=== PATIENT | male | born 1960 | race Caucasian/White ===

== ENCOUNTER 2016-07-09 23:10 | Inpatient (IN) ==
[2016-07-09] MEDS ORDERED: LASIX IV ONE (23:45)
--- NOTE | 2016-07-09 23:51 | PROVIDER DOCUMENTATION ---
HPI-Respiratory General <Lindsey Brice - Last Filed: 07/10/16 00:29> - General Source: patient <Sigrid Preston - Last Filed: 07/10/16 00:52> - General Chief Complaint: Shortness of Breath Stated Complaint: SOB Time Seen by Provider: 07/09/16 23:28 Allergies/Adverse Reactions: Patient Allergies Allergy/AdvReac Type Severity Reaction Status Date / Time No Known Allergies Allergy Verified 07/09/16 23:51 Home Medications: Home Medication List Medication Instructions Recorded Confirmed Last Taken Type Aspirin 81 mg PO QAM 07/08/12 07/09/16 07/09/16 08:00 History Lisinopril [Zestril] 20 mg PO QAM 07/08/12 07/09/16 07/09/16 08:00 History ATORVAstatin [Lipitor] 80 mg PO QAM 11/03/15 07/09/16 07/09/16 21:00 History Edoxaban Tosylate [Savaysa] 60 mg PO QAM 11/03/15 07/09/16 07/09/16 08:00 History Albuterol Sulfate [Proair Hfa] 8.5 gm IH DAILY 03/24/16 07/09/16 07/09/16 08:00 History Clopidogrel Bisulfate [Clopidogrel] 75 mg PO DAILY 03/24/16 07/09/16 07/09/16 08 :00 History Furosemide [Lasix] 40 mg PO DAILY PRN 03/24/16 07/09/16 07/09/16 20:00 History Levocetirizine Dihydrochloride 5 mg PO DAILY 03/24/16 07/09/16 07/09/16 08:00 History [Xyzal] Potassium Chloride [Klor-Con M20] 20 meq PO DAILY PRN 03/24/16 07/09/16 21:00 History Metoprolol Succinate [Toprol Xl] 25 mg PO DAILY 07/09/16 07/09/16 07/09/16 08: 00 History - History of Present Illness-Resp Nature of Presenting Problem: 55 y/o WM c hx of CHF, PCI x 3, 3 vessel CAGB and COPD c/o sob x 2 days. Denies cough, or chest pain. Has increased from a 2 pillow orthopnea to a four pillow orthopnea. Has Lasix 40 mg daily PRN. Wears CPAP at night and oxygen at night when needed. Patient states when he dois cough, it is frothy and thinks there is blood in it. States he feels like he "ate Claudia dinner and Thanksgiving dinner at the same time" alluding to that he cannot take a deep breath in. Has swelling in lower extremities bilaterally (Sigrid Preston) Review of Systems - Adult - REVIEW OF SYSTEMS - ADULT Constitutional: reports: see HPI, fatique. denies: chills, fever Eyes: reports: no symptoms reported. denies: decreased vision, blurred vision, double vision, eye pain Ears, Nose, Mouth & Throat: reports: no symptoms reported. denies: ear pain, nose pain, throat pain Cardiovascular: reports: no symptoms reported. denies: chest pain, irregular heart rate, palpitations Respiratory: reports: see HPI, shortness of breath. denies: cough, wheezing Gastrointestinal: reports: no symptoms reported. denies: abdominal pain, diarrhea, nausea, vomiting Genitourinary: reports: no symptoms reported. denies: dysuria, discharge, frequency Musculoskeletal: reports: no symptoms reported. denies: bone pain, back pain, muscle aches Integumentary: reports: no symptoms reported. denies: rash Neurological: reports: no symptoms reported. denies: headache/migraines Psychiatric: reports: no symptoms reported Endocrine: reports: no symptoms reported Hematologic/Lymphatic: reports: no symptoms reported Allergic/Immunologic: reports: no symptoms reported All Other Systems: Reviewed and Negative <Sigrid Preston - Last Filed: 07/10/16 00:52> Past History - Adult - PAST MEDICAL HISTORY-ADULT Review of Records: reports: Old Records Reviewed, Nursing Assessment Review, Medications Reviewed Major Childhood Illnesses: reports: denies history Cardiovascular: reports: CAD, CHF, HTN, hyperlipidemia, pacemaker Respiratory: reports: asthma, COPD Gastrointestinal: reports: denies history Genitourinary: reports: denies history Musculoskeletal: reports: denies history Neurological: reports: denies history Endocrine/Immune: reports: denies history Other Conditions: reports: denies history - PRIOR SURGERIES/PROCEDURES Surgical/Procedure History: reports: CABG, cardiac stent, pacemaker - IMMUNIZATION STATUS Childhood Immunizations: See Nurse Assessment Flu Vaccine: See Nurse Assessment - FAMILY HISTORY Family History: reviewed, not pertinent - SOCIAL HISTORY Smoking: denies Substance Use: none/never Alcohol Use Frequency: never <Sigrid Preston - Last Filed: 07/10/16 00:52> Physical Exam-General - PHYSICAL EXAM-ADULT Initial Vital Signs Reviewed: Yes - CONSTITUTIONAL General Appearance: appears well, alert, no apparent distress, obese - EYES Eyes: PERRL/EOMI, pink conjunctivae - HEAD, EARS, NOSE, MOUTH & THROAT HENMT: normocephalic/atraumatic, moist mucous membranes, normal ENT inspection - NECK Neck: non-tender, full range of motion, supple, normal inspection - RESPIRATORY Respiratory: chest non-tender, no pleuratic chest pain, no respiratory distress , no accessory muscle use, crackles. negative: respiratory distress, decreased breath sounds, rales, rhonchi, stridor, wheezing - CARDIOVASCULAR Cardiovascular: normal peripheral pulses, regular rate, rhythm, no gallop, no murmur - MUSCULOSKELETAL Extremity: normal range of motion, other (3+ pitting edema up to the knees) Peripheral Pulses: radial (R): 2+, radial (L): 2+, dorsalis-pedis (R): 2+ DTR: bicep (R): 4+, bicep (L): 4+, tricep (R): 4+, tricep (L): 4+, knee (R): 4+ , knee (L): 4+, ankle (R): 4+, ankle (L): 4+ - SKIN Integumentary: normal color, normal turgor, warm/dry - NEUROLOGIC Neurologic: grossly normal, no motor/sensory deficits - PSYCHIATRIC Psych/Mental Status: normal mood/affect, normal thought content, normal thought process, oriented x 3 <Sigrid Preston - Last Filed: 07/10/16 00:52> Progress - EKG 1 Time of EKG reading by physician:: 23:20 EKG Read and Signed by:: Ethan Sun EKG Interpretation (*Must complete 3 of following elements*): Abnormal Rate: 101 Rhythm: sinus tachycardia with occasional PVCs ST Wave: non-specific ST changes <Lindsey Brice - Last Filed: 07/10/16 00:29> - XRAY 1 XRAY: Bilateral XRAY Study: Chest Impression: Abnormal (pulmonary edema bilaterally, ER prelim) - CONSULTS/PCP/HOSPITALIST Notification #1 *Consult/PCP/Hospitalist*: Dr. Jaimes, hospitalist Time Discussed: 00:51 Reason/Comments: CHF exacerbation, pulmonary edema Consult Disposition: Admit (get efibrillater interrogated) <Sigrid Preston Chance - Last Filed: 07/10/16 00:52> - PLAN OF CARE/RESULTS Progress/Plan/Lab Results: Vital Signs Temp Pulse Resp BP Pulse Ox 07/09/16 23:14 97.7 F 102 H 22 156/77 95 No Known Allergies Allergy (Verified 07/09/16 23:51) Aspirin 81 mg PO QAM 07/08/12 Lisinopril [Zestril] 20 mg PO QAM 07/08/12 ATORVAstatin [Lipitor] 80 mg PO QAM 11/03/15 Edoxaban Tosylate [Savaysa] 60 mg PO QAM 11/03/15 Albuterol Sulfate [Proair Hfa] 8.5 gm IH DAILY 03/24/16 Clopidogrel Bisulfate [Clopidogrel] 75 mg PO DAILY 03/24/16 Furosemide [Lasix] 40 mg PO DAILY PRN 03/24/16 Levocetirizine Dihydrochloride [Xyzal] 5 mg PO DAILY 03/24/16 Potassium Chloride [Klor-Con M20] 20 meq PO DAILY PRN 03/24/16 Metoprolol Succinate [Toprol Xl] 25 mg PO DAILY 07/09/16 Laboratory 07/09/16 07/09/16 07/09/16 23:55 23:55 23:55 WBC RBC Hgb Hct MCV MCH MCHC RDW Std Deviation Plt Count MPV Immature Gran % (Auto) Neut % (Auto) Lymph % (Auto) Elk % (Auto) Eos % (Auto) Baso % (Auto) Immature Gran # (Auto) Neut # (Auto) Lymph # (Auto) Elk # (Auto) Eos # (Auto) Baso # (Auto) Sodium 140 Potassium 4.4 Chloride 98 Carbon Dioxide 25 Anion Gap 17 BUN 25 H Creatinine 1.0 Estimated GFR/1.73 m2 > 60 BUN/Creatinine Ratio 25 Glucose 107 H Calculated Osmolality 284 Calcium 9.0 Total Bilirubin 0.79 AST 13 ALT 13 Alkaline Phosphatase 78 Creatine Kinase 74 Troponin T < 0.010 [id number] Pept 1663 H Total Protein 7.2 Albumin 4.1 Globulin 3.1 Albumin/Globulin Ratio 1.3 07/09/16 23:55 WBC 6.29 RBC 3.72 L Hgb 12.1 L Hct 38.0 L MCV 102.2 H MCH 32.5 H MCHC 31.8 L RDW Std Deviation 14.5 Plt Count 160 MPV 10.6 H Immature Gran % (Auto) 0.0 Neut % (Auto) 66.2 Lymph % (Auto) 20.2 L Elk % (Auto) 12.4 H Eos % (Auto) 0.6 Baso % (Auto) 0.6 Immature Gran # (Auto) 0.00 Neut # (Auto) 4.16 Lymph # (Auto) 1.27 Elk # (Auto) 0.78 H Eos # (Auto) 0.04 Baso # (Auto) 0.04 Sodium Potassium Chloride Carbon Dioxide Anion Gap BUN Creatinine Estimated GFR/1.73 m2 BUN/Creatinine Ratio Glucose Calculated Osmolality Calcium Total Bilirubin AST ALT Alkaline Phosphatase Creatine Kinase Troponin T [id number] Pept Total Protein Albumin Globulin Albumin/Globulin Ratio Orders Category Date Time Status Saline Loc NOW Care 07/09/16 23:37 Active CHEST-PORTABLE [RAD] Stat Exams 07/09/16 23:53 Taken CBC WITH ELECTRONIC DIFF [HEME] Stat Lab 07/09/16 23:55 Completed CK PROFILE [SP CHEM] Stat Lab 07/09/16 23:55 Completed COMPREHENSIVE METABOLIC PANEL [CHEM] Stat Lab 07/09/16 23:55 Completed PRO B-NATRIURETIC PEPTIDE Stat Lab 07/09/16 23:55 Completed TROPONIN T Stat Lab 07/09/16 23:55 Completed Furosemide [Lasix] Med 07/09/16 23:45 Discontinued 40 mg IV NOW ONE EKG [EKG] Stat Ther 07/09/16 23:16 Ordered (Sigrid Preston) Departure <Lindsey Brice - Last Filed: 07/10/16 00:29> - Departure Time of Disposition Order: 00:45 Certified Medical Emergency: Emergent <Sigrid Preston - Last Filed: 07/10/16 00:52> - Departure DIAGNOSIS: Heart failure Qualifiers: Heart failure type: combined Heart failure chronicity: acute on chronic Qualified Code(s): I50.43 - Acute on chronic combined systolic (congestive) and diastolic (congestive) heart failure Dyspnea Qualifiers: Dyspnea type: dyspnea on exertion Qualified Code(s): R06.09 - Other forms of dyspnea Disposition: ADMITTED INPATIENT 09 Condition: Stable Referrals: Alma Michaels [Primary Care Provider] - Attestation - Physician/ LUIZA Attestation Patient care was provided by Advanced Practice Provider:: Yes Advanced Practice Provider:: Sigrid Preston Advanced Practice Provider documentation review:: The Mid-level provider documentation, treatment plan and medical decision making was reviewed by the physician who agrees with all treatment and medical decision making by the MLP. <Sigrid Preston - Last Filed: 07/10/16 00:52> Physician Attestation
[2016-07-10 00:05] LABS: MANUAL DIFF NEEDED? NO
[2016-07-10 00:08] LABS: BASO% 0.6 % (0.0-0.8); EOS# 0.04 X1000 (0.0-0.7); EOS% 0.6 % (0.0-10.0); HEMOGLOBIN 12.1 g/dL (14.0-18.0); LYMPH# 1.27 X1000 (1.2-3.4); LYMPH% 20.2 % (20.5-51.1); MCH 32.5 PG (27-31); MCHC 31.8 g/dL (33-37); MCV 102.2 FL (81-99); MONO# 0.78 X1000 (0.11-0.59); MONO% 12.4 % (1.7-9.3); MPV 10.6 FL (7.4-10.4); NEUT% 66.2 % (42.2-75.2); PLT 160 X1000 (130-400); RBC 3.72 XMIL (4.7-6.1)
[2016-07-10 00:44] LABS: AGAP 17; ALBUMIN 4.1 g/dL (3.5-5.0); ALKALINE PHOSPHATASE 78 U/L (32-122); BUN 25 mg/dL (8-22); CHLORIDE 98 mmol/L (98-107); CK PROFILE 74 U/L (24-204); COSMO 284; GOT 13 U/L (10-34); GPT 13 U/L (10-44); POTASSIUM 4.4 mmol/L (3.5-5.1); SODIUM 140 mmol/L (136-145); TCO2 25 mmol/L (25-35); TOTAL BILIRUBIN 0.79 mg/dL (0.20-1.00); TOTAL PROTEIN 7.2 g/dL (6.3-8.3)
[2016-07-10 02:20] LABS: ALLEN TEST YES; BE 6.7 mmoll (-3.0-3.0); BLOOD TYPE ARTERIAL; DRAW SITE L RADIAL; METHB 1.2 % (0.0-1.5); O2(CT) 15.3 mL/dL (15.0-23.0); PCO2(98.6) 47 mmHg (35-45); PO2(98.6) 64 mmHg (60-100); SAMPLE BLOOD; SAO2 94.7 % (95.0-100.0); THB 11.9 g/dL (11.5-17.4); pH(98.6) 7.44 (7.35-7.45)
[2016-07-10 02:21] LABS: MODALITY CANNULA
[2016-07-10] MEDS ORDERED: KLOR-CON PO PRN (03:42)
[2016-07-10] MEDS ORDERED: LASIX IV SCH (03:42)
--- NOTE | 2016-07-10 06:21 | HISTORY AND PHYSICAL ---
PRIMARY CARE PROVIDER: DOMINIQUE Mejia. CHIEF COMPLAINT: Shortness of breath x2 days. HISTORY OF PRESENTING ILLNESS: A 55-year-old, morbidly obese male with a history of COPD, CHF and coronary disease who presented to the emergency department with 2 days history of progressive worsening shortness of breath. Patient states that even with mild exertion he had to catch his breath. The patient is on home oxygen; however, it did not help with his symptoms. Throughout the past day it seemed to be worsening and subsequently had come to the emergency department. At the ER, he was evaluated. He was found in pulmonary edema, and due to his presenting symptoms, it was thought that he would need hospitalization for further management. At the time of my examination, he denied any headache, fever, chills, chest pain, hemoptysis, melena, weight changes, but complained of shortness of breath. PAST MEDICAL HISTORY: 1. COPD on home O2. 2. Asthma. 3. CHF 4. Coronary artery disease. 5. Hyperlipidemia 6. Hypertension 7. Sleep apnea. PAST SURGICAL HISTORY: 1. AICD coronary stent. 2. Coronary bypass. 3. Back surgery. ALLERGIES: No known drug allergies. CURRENT MEDICATIONS: As in the MAR SOCIAL HISTORY: He is a former smoker. Admits to social alcohol use. Denies any illicit drug use. FAMILY HISTORY: Positive for coronary artery disease in father. REVIEW OF SYSTEMS: Twelve point systems listed as in HPI. Other systems negative. PHYSICAL EXAMINATION: GENERAL: Obese male in some mild respiratory distress. VITAL SIGNS: Temperature 97.7 degrees, pulse 102, respiration 22, blood pressure 156/77. Saturation 95%. HEENT: Atraumatic, normocephalic. Extraocular movements intact. PERRLA. NECK: No masses. CHEST: Bibasilar rales. CARDIOVASCULAR: Regular rate and rhythm. ABDOMEN: Soft, obese, positive bowel sounds. EXTREMITIES: Left leg +2 edema. NEUROLOGIC: He is awake, alert, oriented x3. : No bladder distention. SKIN: Warm. LABORATORIES AND STUDIES: Sodium 140, potassium 4.4, chloride 98, CO2 25, BUN is 25, creatinine is 1.0, glucose is 107, ProBNP is 1663. Troponin 0.10, WBC 6.29, hemoglobin 12.1, hematocrit 38.0, platelets is 160,000. ASSESSMENT: A 55-year-old, morbidly obese male with a history of congestive heart failure, chronic obstructive pulmonary disease and hypertension who had presented to the emergency department with 2 days history of worsening shortness of breath. He is found to be in pulmonary edema. He was given IV Lasix and he will need hospitalization for further management. 1. Acute congestive heart failure exacerbation. 2. Left lower extremity edema, need to rule out deep venous thrombosis. 3. Chronic obstructive pulmonary disease exacerbation. 4. Hypertension. 5. Sleep apnea. PLAN: 1. We will admit patient to medical floor with telemetry. 2. Continue gentle lysis diuresis with Lasix. 3. We will consult his music researcher. 4. Will obtain venous Dopplers of left lower extremity. 5. We will continue with DuoNebs and will check an ABG, and if his dyspnea worsens we may need to put him on BiPAP. 6. We will monitor blood pressure closely. 7. We will need to arrange his CPAP machine. 8. We will put will put patient on deep vein thrombosis prophylaxis with heparin. 9. We will continue to follow and reassess. MARCO
[2016-07-10] MEDS: DUONEB (A & A) INH SCH ×6 (07:09→23:34)
--- NOTE | 2016-07-10 07:45 | EKG Report ---
Test Performed on : 07/09/2016 11:20:46 PM Test Reason : sob Blood Pressure : / mmHG Vent. Rate : 101 BPM Atrial Rate : 101 BPM P-R Int : 180 ms QRS Dur : 102 ms QT Int : 350 ms P-R-T Axes : 041 -19 110 degrees QTc Int : 453 ms Sinus tachycardia. with occasional premature ventricular complexes. ST & T wave abnormality, consider lateral ischemia Abnormal ECG When compared with ECG of 26-MAR-2016 04:57, premature ventricular complexes. are now present Unconfirmed Result
--- NOTE | 2016-07-10 08:29 | Diag Imaging Result Document ---
PROCEDURE NAME: CHEST-PORTABLE - 07/09/2016 SINGLE FRONTAL RADIOGRAPH OF THE CHEST: COMPARISON: 03/25/2016. FINDINGS: There is stable cardiomegaly and increased central vascular markings suggesting pulmonary venous congestion. This is similar to the previous study. There is probably also mild interstitial edema that is also similar to the previous study. There is suggestion of small effusions. Left-sided implanted defibrillator/pacemaker is stable. IMPRESSION: Stable cardiomegaly with suggestion of pulmonary venous congestion and, perhaps, mild interstitial edema with small bilateral effusions.
[2016-07-10] MEDS: ASPIRIN PO SCH (09:08)
[2016-07-10] MEDS: SAVAYSA PO SCH (09:09)
[2016-07-10] MEDS: LIPITOR PO SCH (09:09)
[2016-07-10] MEDS: ZYRTEC PO SCH (09:09)
[2016-07-10] MEDS: PRINIVIL PO SCH (09:10)
[2016-07-10] MEDS: PLAVIX PO SCH (09:10)
[2016-07-10] MEDS: TOPROL XL PO SCH (09:10)
[2016-07-10] MEDS ORDERED: VANCOMYCIN IV PER PHARMACY MISC SCH (09:30)
[2016-07-10] MEDS ORDERED: ZOSYN 3.375 GM/NS 50 ML IV SCH (10:00)
--- NOTE | 2016-07-10 11:45 | Extremity Venous Study ---
PROCEDURE NAME: Venous U/S Left Leg - 07/10/2016 DATE OF STUDY: 07/10/2016. REQUESTING PHYSICIAN: Dr. Puga. EMERGENCY DEPARTMENT BROACH GRINDER: Rahul. TEST: The left lower extremity venous study. INDICATION: 1. Shortness of breath. 2. Edema. 3. D-dimer is 0.62. 4. Morbid obesity. PROCEDURE: Left lower extremity venous duplex color-flow imaging. EQUIPMENT: [employer] E 9 ultrasound system and a 9 LD transducer. FINDINGS: Imaging of the left lower extremity with comparison shot to the right common femoral vein retained in both sagittal and transverse planes. Doppler was used to evaluate veins for spontaneity, phasicity, respiratory excursion, and digital augmentation. RESULTS: Morbid obesity limits the ability to interpret this study given the difficulty with obtaining venous images, but at this time there are no obvious superficial or deep venous thrombosis noted on this limited study. There is no obvious changes of flow noted on this study. INTERPRETATION: Technically limited study given the patient's morbid obesity, but no obvious superficial or deep venous thrombosis noted at this time. [facility]
[2016-07-10] MEDS ORDERED: VANCOMYCIN 2 GM in NS 500 ML IV ONE (12:00)
[2016-07-10] MEDS: LANOXIN IV SCH ×3 (12:18→22:57)
[2016-07-10] MEDS: LASIX IV SCH ×2 (12:18→22:57)
--- NOTE | 2016-07-10 14:41 | CONSULTATION ---
DATE OF CONSULTATION: 07/10/2016 CONCLUSION: I agree with Dr. Cooper the patient has cellulitis of the left leg and abdominal wall. I think the main reason for his cellulitis is that he has generalized edema and has developed cellulitis secondary to that. The patient has a history of having recurrent infections including recurrent episodes of pneumonia which required hospitalization. I am concerned that he may have an immunoglobulin deficiency. RECOMMENDATIONS: I agree with the decision to treat the patient with vancomycin. I have substituted cefepime for Zosyn. I have also ordered immunoglobulin levels. DISCUSSION: The patient says that for the past 2 days he developed marked dyspnea and also left lower leg swelling and erythema associated with pain and low-grade fever. The patient has been admitted to the [facility] Unit. Here, his CBC shows a white count of 6290, hemoglobin 12.1, and platelet count 160,000. Patient's creatinine is 1. GFR is greater than 60. Liver function studies are normal. Blood gases show a pH of 7.44, PO2 of 64, and a pCO2 of 47. Doppler study on the left leg showed no deep venous thrombosis. Chest x-ray shows findings compatible with congestive heart failure with pulmonary edema. The patient has a CPK of 74. PAST MEDICAL HISTORY/REVIEW OF SYSTEMS: EYES AND EARS: He does not have any difficulty hearing or seeing. NECK: No stiffness. RESPIRATORY: The patient came in because he was markedly short of breath even at rest. He was not coughing, and he was not running a fever. CARDIOVASCULAR: No chest pain or palpitations. He was very dyspneic, as mentioned above, and this is most likely secondary to his congestive heart failure. CARDIAC also again, as mentioned, he does have congestive heart failure. His rhythms have been sinus rhythm and then episodes of atrial fibrillation. ENDOCRINE: He does not have diabetes or thyroid disease. GI: No nausea, vomiting, or diarrhea. : No dysuria or flank pain. NEUROLOGIC: No syncopal episode. No motor or sensory deficit. INTEGUMENT: No rashes. The remainder of the patient's review of systems was completed and was negative. PREVIOUS HOSPITALIZATIONS AND OPERATIONS: He has had an episode similar to what he has now, namely congestive heart failure and leg cellulitis back in 03/2016. He also had admission for pneumonia, myocardial infarction, coronary artery bypass grafting, placement of a stent in the coronary arteries, and implantation of a defibrillator in the left side of his chest. MEDICAL DISEASES: Positive for hypertension, myocardial infarction, morbid obesity, congestive heart failure, sleep apnea, COPD, asthma, and hyperlipidemia. The patient also has an implanted defibrillator for cardiac arrhythmia. Also, as mentioned above, he has been having sinus rhythm and, also, he has been having atrial flutter. INFECTIOUS DISEASE HISTORY: Positive for leg cellulitis and pneumonia. FAMILY HISTORY: Positive for hypertension, myocardial infarction, and cancer. SOCIAL HISTORY: [place] He is . He smokes cigarettes. He rarely drinks alcoholic beverages. He is disabled due to congestive heart failure. He has a dog for a pet. ALLERGIES: He has no known drug allergies. HOME MEDICATIONS: 1. Potassium. 2. Toprol. 3. Zestril. 4. Xyzal. 5. Lasix. 6. Savaysa. 7. Clopidogrel. 8. Albuterol inhaler. 9. Lipitor. PHYSICAL EXAMINATION: Vital Signs: Temperature is 97.6 degrees, pulse 78, respirations 14, blood pressure 115/45. General: This is a morbidly obese middle-aged male. He is in a little bit of respiratory distress at rest. Head, eyes, ears, nose and throat: He can hear my spoken words. He can see near objects. No white patches were noticed in his mouth. Neck: No meningismus. Thorax: Increased AP chest diameter. Defibrillator site not red or swollen. Lungs: There were bibasilar rales. Cardiovascular: Heart rate was regular. He has had episodes a day of atrial flutter. Abdomen: Soft and not tender on abdominal wall. Particularly in the left lower quadrant, there is erythema. Extremities: The left leg has erythema and swelling. The right leg is swollen but to a lesser extent, and there is no erythema at this time. Neurologic: The patient is awake. He can move his extremities. There is no tremor. His sensation is intact to touch. His memory as regarding his medical history seemed to be intact as well. Integument: No rash noted. Thank you for the consult. [facility]
[2016-07-10] MEDS: MAXIPIME 2 GM/NS 100 ML IV SCH ×2 (16:47→22:57)
--- NOTE | 2016-07-10 18:19 | CONSULTATION ---
DATE OF CONSULTATION: 07/10/2016 CONSULTATION REQUESTED BY: Hospitalist Service. REASON FOR CONSULTATION: Dyspnea, redness of the left leg, swelling. HISTORY: Mr. Alamo is a 55-year-old male who is known to have chronic congestive heart failure. He presents to the emergency department for complaints of 2-3 days of increasing swelling of the leg, the left, with redness as well as swelling of the abdomen, increasing dyspnea. The patient had been taking Lasix intermittently, however, he has not been taking it on a regular basis. At the time of presentation, his initial chest x-ray shows stable cardiomegaly with suggestion of pulmonary venous congestion and perhaps mild interstitial pulmonary edema with small bilateral pleural effusions. An electrocardiogram done at the time of first presentation shows sinus tachycardia with PVCs. The patient's initial count was 6290. Blood gases on 3 L nasal cannula showed pH 7.44, pO2 of 64, pCO2 of 47. Electrolytes are normal. Pro BNP is 1663. He has been given Lasix and admitted to the floor for evaluation. He is not having any significant chest pain. PAST MEDICAL HISTORY: 1. Severe coronary heart disease. He has had previous bypass surgery back in 1992. He underwent percutaneous intervention to the right mammary artery graft in 2010. 2. He has had nonsustained ventricular tachycardia and has received a prophylactic AICD in August 2014. 3. He has had atrial flutter in the past. 4. Hypertension. 5. Dyslipidemia. 6. Sleep apnea syndrome. 7. Gastric reflux. 8. He is morbidly obese. PAST SURGICAL HISTORY: Past surgical history besides the bypass and the AICD includes: 1. Herniated disk repair. 2. Perineal abscess drainage. The patient was admitted to [facility] back in March of 2016 with severe congestive heart failure. He had extensive evaluation in the hospital, I believe between 03/24/2016 and 03/29/2016. Eventually he made it home. He has quit smoking since then. This patient had at that time some cellulitis of the abdominal wall that was treated with antibiotics. SOCIAL HISTORY: He lives by himself. He has quit smoking about 3 months ago. He does not use any illicit drugs. FAMILY HISTORY: Father had coronary heart disease. ALLERGIES: Negative. REVIEW OF SYSTEMS: Otherwise noncontributory. His functional capacity is very limited. He is chronically short of breath. He is very obese. Body mass index now is 47. HOME MEDICATIONS: His home medications at the time of this admission included: 1. Potassium chloride 20 mEq daily. 2. Metoprolol succinate 25 daily. 3. Lisinopril 20 daily. 4. Xyzal 5 mg daily. 5. Furosemide 40 mg daily. 6. Savaysa 60 mg daily. 7. Clopidogrel 75 daily. 8. Albuterol 8.5 daily. 9. Atorvastatin 80 mg daily. PHYSICAL EXAMINATION: VITAL SIGNS: Blood pressure is 115/45. Temperature is 97.6. Pulse 92. Respirations 18. He weighs 382 pounds. GENERAL: He is obese, in no distress. HEENT: Unremarkable. CHEST: Diminished breath sounds at the bases. No rales are noted. CARDIAC: Heart sounds are slightly irregular. He does have extrasystole. There is a systolic murmur noted over the left sternal border. ABDOMEN: Very obese. No erythema of any significance is noted. EXTREMITIES: Showed erythema of the left leg. This is suspicious for cellulitis. The left leg is more swollen than the right. NEUROLOGIC: He follows commands. He moves all four extremities. IMPRESSION: 1. Patient who presents with increasing dyspnea consistent with exacerbation of congestive heart failure, possibly complicated by his chronic obstructive pulmonary disease and now possible cellulitis of the left leg. 2. History of severe coronary heart disease with previous bypass surgery. 3. History of ventricular tachycardia status post AICD. 4. History of paroxysmal atrial flutter. 5. Morbidly obese. 6. Sleep apnea syndrome. 7. Chronic obstructive pulmonary disease on home oxygen. RECOMMENDATIONS: At this point in time, I agree with treating for presumptive cellulitis. I would check inflammatory markers to see how much inflammation he has. I would give him some Lasix and see how he does. Once the patient is back to his baseline, then he will probably be discharged home with instructions to follow up with his usual physicians. He follows with DOMINIQUE Mejia, and Mendoza Carr MD.
[2016-07-11] MEDS: VANCOMYCIN 1,750 MG in NS 250 ML IV SCH ×2 (00:14→13:19)
[2016-07-11] MEDS: DUONEB (A & A) INH SCH ×6 (02:45→23:27)
[2016-07-11] MEDS: LANOXIN IV SCH (05:26)
[2016-07-11] MEDS: MAXIPIME 2 GM/NS 100 ML IV SCH ×4 (05:26→23:22)
[2016-07-11 05:45] LABS: MANUAL DIFF NEEDED? NO
[2016-07-11 05:50] LABS: BASO% 0.5 % (0.0-0.8); EOS# 0.05 X1000 (0.0-0.7); EOS% 0.9 % (0.0-10.0); HEMATOCRIT 36.8 % (42.0-52.0); HEMOGLOBIN 11.4 g/dL (14.0-18.0); LYMPH# 1.48 X1000 (1.2-3.4); LYMPH% 26.8 % (20.5-51.1); MCH 32.1 PG (27-31); MCV 103.7 FL (81-99); MONO% 14.5 % (1.7-9.3); MPV 11.1 FL (7.4-10.4); NEUT% 57.3 % (42.2-75.2); PLT 159 X1000 (130-400); RBC 3.55 XMIL (4.7-6.1)
[2016-07-11 06:12] LABS: AGAP 10; BUN 21 mg/dL (8-22); CHLORIDE 97 mmol/L (98-107); COSMO 287; POTASSIUM 4.5 mmol/L (3.5-5.1); SODIUM 142 mmol/L (136-145); TCO2 35 mmol/L (25-35)
--- NOTE | 2016-07-11 06:51 | PROGRESS NOTE ---
DATE: 07/11/2016 PRESENT ILLNESS: The patient has cellulitis of the left leg and abdominal wall. I think at this time the left leg looks better. It is less swollen. I do not think it is quite as red. The abdominal wall erythema looks about the same to me as yesterday. MEDICATIONS: The patient is on vancomycin and cefepime. PHYSICAL EXAMINATION: Vital Signs: Temperature is 97.8 degrees, pulse 80, respirations 23, blood pressure 127/54. General: This is a morbidly obese, middle-aged male who is in no acute distress. Lungs: Clear to auscultation. There were diminished breath sounds in the bases due to the patient's large size. Cardiovascular: The heart rate was regular except for when he had PVCs. Abdomen: Soft and not tender. The erythema on the abdomen wall looks about like it did yesterday. Extremities: There is definitely less edema in the left leg and I do not think it is as erythematous as it was yesterday. Chest: The patient's defibrillator is present. The site is not swollen or tender. LAB AND X-RAY: There is no new x-ray. The lab for today, the patient's CBC has a white count of 5530, hemoglobin 11.4, and platelet count 159,000. Creatinine is 1. GFR is greater than 60. ASSESSMENT AND PLAN: Patient has cellulitis of the leg and abdominal wall. I plan to continue the patient's current antibiotics. Also, I have elevated the foot of the patient's bed with the manual Gatch which I think will help get more of the fluid out of the patient's leg and this should also make the cellulitis less visible. COMORBIDITIES: He is morbidly obese. He has COPD, asthma, congestive heart failure, sleep apnea.
--- NOTE | 2016-07-11 06:57 | EKG Report ---
Test Performed on : 07/11/2016 06:25:55 AM Test Reason : chf Blood Pressure : / mmHG Vent. Rate : 086 BPM Atrial Rate : 086 BPM P-R Int : 174 ms QRS Dur : 122 ms QT Int : 380 ms P-R-T Axes : 025 -15 124 degrees QTc Int : 454 ms Sinus rhythm. with frequent premature ventricular complexes. Nonspecific intraventricular conduction delay Nonspecific ST and T wave abnormality Abnormal ECG When compared with ECG of 09-JUL-2016 23:20, (Unconfirmed) QRS duration has increased Confirmed by Anjelica HOUSTON, Jarrod Mercado ([id number]) on 07/12/2016 9:28:21 AM
--- NOTE | 2016-07-11 08:25 | Diag Imaging Result Document ---
PROCEDURE NAME: CHEST-PORTABLE - 07/11/2016 SINGLE FRONTAL RADIOGRAPH OF THE CHEST: COMPARISON: 07/09/2016. FINDINGS: Inspiration is suboptimal. There are persistent small pleural effusions that are probably slightly larger than the previous study. Interstitial edema and pulmonary venous congestion is approximately stable. No other new infiltrate is identified. There is stable cardiomegaly. IMPRESSION: Approximately stable interstitial edema with slight increase in the small bibasilar effusions.
[2016-07-11] MEDS: ASPIRIN PO SCH (08:45)
[2016-07-11] MEDS: SAVAYSA PO SCH (08:46)
[2016-07-11] MEDS: PLAVIX PO SCH (08:46)
[2016-07-11] MEDS: LIPITOR PO SCH (08:46)
[2016-07-11] MEDS: PRINIVIL PO SCH (08:46)
[2016-07-11] MEDS: ZYRTEC PO SCH (08:46)
[2016-07-11] MEDS: TOPROL XL PO SCH (08:46)
[2016-07-11] MEDS: MIRALAX PO SCH ×2 (09:41→21:50)
[2016-07-11] MEDS: LASIX IV SCH ×2 (11:01→23:03)
--- NOTE | 2016-07-11 17:01 | PROGRESS NOTE ---
DATE: 07/11/2016 SUBJECTIVE: The patient is resting comfortably in bed. He has no complaints. The erythema in his left leg has improved. OBJECTIVE: Vital Signs: Temperature 97, blood pressure 93/68, heart rate 92, respirations 14, O2 saturations 95% on 3 L nasal cannula. General: This is a morbidly obese male, lying in bed, in no acute distress. Head: Normocephalic, atraumatic. Heart: S1, S2. Normal. Regular rate and rhythm. Lungs: Clear to auscultation bilaterally. No wheezing. No rales. No rhonchi. Abdomen: Positive bowel sounds. Soft, obese, erythema present on the skin. Extremities: 2+ edema with mild erythema involving the left lower extremity. Neurologic: The patient is alert and oriented x3. LABS: White blood cell count 5.5, hemoglobin 11, hematocrit 36, platelets 159. Sodium 142, potassium 4.5, chloride 97, CO2 of 35, BUN 21, creatinine 1, glucose 106, mag 2, calcium 9. ASSESSMENT AND PLAN: 1. Left lower extremity cellulitis with abdominal wall cellulitis. Continue on the current IV antibiotic regimen as per Dr. Gordon. 2. Volume overload. Continue on IV Lasix. Cardiology is following. 3. Obstructive sleep apnea. Aware. 4. Severe coronary artery disease status post coronary artery bypass graft. Continue on the current cardiac medications. 5. Paroxysmal atrial flutter. The patient is currently on anticoagulation.
--- NOTE | 2016-07-11 17:15 | PROGRESS NOTE ---
DATE: 07/11/2016 CHIEF COMPLAINT: Shortness of breath and swelling. SUBJECTIVE: Mr. Alamo is feeling much better. He is not as short of breath as he was. He is not having any chest pain. His leg is less swollen. It is still very red. OBJECTIVE: Vital signs: Blood pressure today is 93/68, temperature 97.7, pulse 92, and respirations 14. General: He is awake, alert, oriented, and in no distress. HEENT: Unremarkable. Respiratory: Chest is clear to auscultation and percussion. Cardiovascular: Heart sounds are regular and rhythmic. No gallop or murmur is noted. Gastrointestinal: The abdomen is very obese. Extremities: The extremities show significant redness in the left leg. The swelling has decreased. Neurological: He follows commands and moves all extremities. He is awake, alert, and oriented times 3. Blood work showed a sodium of 142, potassium 4.5, BUN 21, creatinine 1, and glucose 106. IMPRESSION: 1. Patient with chronic congestive heart failure, systolic and diastolic. 2. Coronary artery disease, severe. 3. Possible cellulitis of the left leg. 4. History of automatic implantable cardioverter defibrillator implantation. 5. Morbid obesity. 6. History of sleep apnea syndrome. RECOMMENDATIONS: At this point in time we will continue with the present cardiac supportive therapy including digoxin and Lasix. Continue antibiotics under the guidance of Dr. Gordon. We will see him probably as needed. He is becoming really very stable at this time.
[2016-07-11] MEDS: DULCOLAX PR SCH (21:50)
[2016-07-12] MEDS: VANCOMYCIN 1,750 MG in NS 250 ML IV SCH ×2 (01:30→18:24)
[2016-07-12] MEDS: DUONEB (A & A) INH SCH ×6 (03:23→23:21)
[2016-07-12 07:13] LABS: MANUAL DIFF NEEDED? NO
[2016-07-12 07:18] LABS: BASO% 0.6 % (0.0-0.8); EOS# 0.08 X1000 (0.0-0.7); EOS% 1.5 % (0.0-10.0); HEMATOCRIT 35.9 % (42.0-52.0); HEMOGLOBIN 11.6 g/dL (14.0-18.0); LYMPH# 1.36 X1000 (1.2-3.4); MCH 33.2 PG (27-31); MCHC 32.3 g/dL (33-37); MCV 102.9 FL (81-99); MONO# 0.72 X1000 (0.11-0.59); MONO% 13.2 % (1.7-9.3); MPV 10.9 FL (7.4-10.4); NEUT% 59.7 % (42.2-75.2); PLT 150 X1000 (130-400); RBC 3.49 XMIL (4.7-6.1)
[2016-07-12 07:29] LABS: AGAP 9; ALBUMIN 3.5 g/dL (3.5-5.0); BUN 18 mg/dL (8-22); CHLORIDE 96 mmol/L (98-107); COSMO 279; POTASSIUM 4.1 mmol/L (3.5-5.1); SODIUM 139 mmol/L (136-145); TCO2 34 mmol/L (25-35)
[2016-07-12] MEDS: LIPITOR PO SCH (09:04)
[2016-07-12] MEDS: PRINIVIL PO SCH (09:04)
[2016-07-12] MEDS: TOPROL XL PO SCH (09:04)
[2016-07-12] MEDS: MAXIPIME 2 GM/NS 100 ML IV SCH ×2 (09:04→16:41)
[2016-07-12] MEDS: LANOXIN PO SCH (09:05)
[2016-07-12] MEDS: PLAVIX PO SCH (09:05)
[2016-07-12] MEDS: ZYRTEC PO SCH (09:05)
[2016-07-12] MEDS: MIRALAX PO SCH ×2 (09:06→20:35)
[2016-07-12] MEDS: COLCRYS PO SCH ×2 (09:06→20:35)
[2016-07-12] MEDS: SAVAYSA PO SCH (09:06)
[2016-07-12] MEDS: ASPIRIN PO SCH (09:06)
[2016-07-12] MEDS: LASIX IV SCH ×2 (11:27→22:31)
--- NOTE | 2016-07-12 16:11 | PROGRESS NOTE ---
DATE: 07/12/2016 SUBJECTIVE: The patient states that the swelling in his legs has improved. OBJECTIVE: Vital Signs: Temperature 97.0 degrees, blood pressure 106/55, heart rate 75, respirations 18, O2 saturations 96% on 2 L nasal cannula. General: This is a morbidly obese male, sitting at the edge of the bed, in no acute distress. Head: Normocephalic, atraumatic. Heart: S1, S2. Normal. Regular rate and rhythm. Lungs: Clear to auscultation bilaterally. No wheezes, no rales. No rhonchi. Abdomen: Obese, soft, nontender, nondistended. Extremities: +1 edema. The patient still has erythema involving the left lower extremity. Neurologic: The patient is alert and oriented x3. LABS: White blood cell count 5.4, hemoglobin 11, hematocrit 35, platelets 150,000. Sodium 139, potassium 4.1, chloride 96, CO2 34, BUN 18, creatinine 0.9, glucose 96. ASSESSMENT AND PLAN: 1. Left lower extremity cellulitis. Continue on IV antibiotic regimen as per Dr. Gordon. 2. Volume overload. Continue on IV Lasix. 3. Chronic diastolic and systolic congestive heart failure. The patient is currently undergoing diuresis. Continue on the current cardiac medications. 4. Obstructive sleep apnea. Aware. 5. Severe coronary artery disease status post coronary artery bypass graft. Continue on the current cardiac medications. 6. Coronary artery disease status post automatic implantable cardioverter-defibrillator. Aware. 7. History of atrial flutter. The patient is currently on anticoagulation. 8. Will consult Physical Therapy.
[2016-07-12] MEDS: DULCOLAX PR SCH (20:35)
[2016-07-13] MEDS: MAXIPIME 2 GM/NS 100 ML IV SCH ×3 (00:19→17:00)
[2016-07-13] MEDS: VANCOMYCIN 1,750 MG in NS 250 ML IV SCH ×2 (00:19→13:46)
[2016-07-13] MEDS: DUONEB (A & A) INH SCH ×6 (03:07→23:01)
[2016-07-13 07:19] LABS: MANUAL DIFF NEEDED? NO
[2016-07-13 07:24] LABS: BASO% 0.6 % (0.0-0.8); HEMOGLOBIN 11.3 g/dL (14.0-18.0); LYMPH# 1.47 X1000 (1.2-3.4); LYMPH% 29.6 % (20.5-51.1); MCH 32.3 PG (27-31); MCHC 31.4 g/dL (33-37); MCV 102.9 FL (81-99); MONO# 0.68 X1000 (0.11-0.59); MONO% 13.7 % (1.7-9.3); MPV 10.6 FL (7.4-10.4); NEUT% 54.1 % (42.2-75.2); PLT 148 X1000 (130-400)
[2016-07-13 07:36] LABS: AGAP 6; ALBUMIN 3.7 g/dL (3.5-5.0); BUN 18 mg/dL (8-22); CALCIUM 8.6 mg/dL (8.8-10.2); CHLORIDE 95 mmol/L (98-107); COSMO 276; SODIUM 137 mmol/L (136-145); TCO2 36 mmol/L (25-35)
[2016-07-13] MEDS: MIRALAX PO SCH ×2 (09:19→21:57)
[2016-07-13] MEDS: LANOXIN PO SCH (09:20)
[2016-07-13] MEDS: PLAVIX PO SCH (09:20)
[2016-07-13] MEDS: TOPROL XL PO SCH (09:20)
[2016-07-13] MEDS: LIPITOR PO SCH (09:20)
[2016-07-13] MEDS: COLCRYS PO SCH ×2 (09:20→21:55)
[2016-07-13] MEDS: SAVAYSA PO SCH (09:20)
[2016-07-13] MEDS: ZYRTEC PO SCH (09:20)
[2016-07-13] MEDS: ASPIRIN PO SCH (09:21)
[2016-07-13] MEDS: PRINIVIL PO SCH (09:21)
[2016-07-13] MEDS ORDERED: CHLORASEPTIC SPRAY MT PRN (09:56)
[2016-07-13] MEDS: LASIX IV SCH ×2 (12:05→22:29)
--- NOTE | 2016-07-13 16:54 | PROGRESS NOTE ---
DATE: 07/13/2016 PRESENT ILLNESS: The patient has cellulitis of the left leg and abdominal wall. Both the erythema and edema of these areas is improved. MEDICATIONS: The patient is on a combination of vancomycin and cefepime. He has been on these medications for a total of 3 days. PHYSICAL EXAMINATION: Vital Signs: Temperature is 98.1 degrees, pulse 80, respirations 23, blood pressure 110/53. Generally: The patient is markedly obese middle-aged male. He is in no acute distress. Lungs: Clear to auscultation. Cardiovascular: Heart rate is regular. Abdomen: Soft and not tender. Skin: Both the left leg and abdominal wall are less erythematous. LAB AND X-RAY: Patient's CBC today shows a white count of 4960, hemoglobin 11.3, and platelet count 148,000. Creatinine is 0.8. GFR is greater than 60. There is no new radiographic study. ASSESSMENT AND PLAN: The patient has cellulitis of his leg and abdominal wall. I plan to continue with the patient's antibiotics. The patient also is being diuresed and this should also help getting rid of the erythema in the leg and abdominal wall. COMORBIDITIES: Include COPD, asthma, congestive heart failure and sleep apnea.
--- NOTE | 2016-07-13 18:56 | PROGRESS NOTE ---
DATE: 07/13/2016 SUBJECTIVE: The patient is resting comfortably in bed. The erythema in his leg is improving as well as the swelling. OBJECTIVE: Vital Signs: Temperature 98 degrees, blood pressure 110/53. Heart rate 80, respirations 23, O2 saturations 99% on room air. General: This is a morbidly obese male, sitting up in bed, in no acute distress. Head: Normocephalic atraumatic. Heart: S1, S2. Normal. Regular rate and rhythm. Lungs: Clear to auscultation bilaterally. No wheezes, no rales. No rhonchi. Abdomen: Obese, nontender, nondistended. Extremities: There is +1 edema. Decreasing erythema involving the left lower extremity. LABS: White blood cell count 4.9, hemoglobin 11, hematocrit 36, platelets 148,000. Sodium 137, potassium 4, chloride 95, CO2 36. BUN 18, creatinine 0.8, glucose 106, calcium 8.6. ASSESSMENT AND PLAN: 1. Left lower extremity cellulitis with abdominal wall cellulitis. Slowly improving. Continue on IV antibiotic therapy. 2. Volume overload. Improved. Continue diuresis with IV Lasix. 3. Chronic diastolic and systolic congestive heart failure exacerbation. Improved. 4. Obstructive sleep apnea. Aware. 5. Severe coronary artery disease status post coronary artery bypass graft. Continue on the current cardiac medications. 6. History of atrial flutter. Continue on chronic anticoagulation. 7. Continue with physical therapy.
[2016-07-13] MEDS: DULCOLAX PR SCH (21:57)
[2016-07-14] MEDS: MAXIPIME 2 GM/NS 100 ML IV SCH ×4 (00:42→23:49)
[2016-07-14] MEDS: VANCOMYCIN 1,750 MG in NS 250 ML IV SCH ×2 (01:49→12:47)
[2016-07-14] MEDS: DUONEB (A & A) INH SCH ×6 (03:13→23:19)
[2016-07-14 07:12] LABS: MANUAL DIFF NEEDED? NO
[2016-07-14 07:17] LABS: BASO% 0.6 % (0.0-0.8); EOS# 0.11 X1000 (0.0-0.7); EOS% 2.2 % (0.0-10.0); HEMATOCRIT 35.3 % (42.0-52.0); HEMOGLOBIN 11.3 g/dL (14.0-18.0); LYMPH# 1.52 X1000 (1.2-3.4); MCH 32.6 PG (27-31); MCV 101.7 FL (81-99); MONO% 14.3 % (1.7-9.3); MPV 10.8 FL (7.4-10.4); NEUT% 51.9 % (42.2-75.2); PLT 155 X1000 (130-400); RBC 3.47 XMIL (4.7-6.1)
[2016-07-14 07:32] LABS: AGAP 14; ALBUMIN 3.6 g/dL (3.5-5.0); BUN 22 mg/dL (8-22); CHLORIDE 91 mmol/L (98-107); COSMO 271; SODIUM 134 mmol/L (136-145); TCO2 29 mmol/L (25-35)
[2016-07-14] MEDS: ASPIRIN PO SCH (09:08)
[2016-07-14] MEDS: PLAVIX PO SCH (09:15)
[2016-07-14] MEDS: MIRALAX PO SCH ×2 (09:15→20:36)
[2016-07-14] MEDS: TOPROL XL PO SCH (09:16)
[2016-07-14] MEDS: COLCRYS PO SCH ×2 (09:16→20:36)
[2016-07-14] MEDS: SAVAYSA PO SCH (09:16)
[2016-07-14] MEDS: ZYRTEC PO SCH (09:16)
[2016-07-14] MEDS: LIPITOR PO SCH (09:16)
[2016-07-14] MEDS: PRINIVIL PO SCH (09:16)
[2016-07-14] MEDS: LANOXIN PO SCH (09:16)
[2016-07-14] MEDS: LASIX IV SCH ×2 (11:12→22:22)
--- NOTE | 2016-07-14 16:52 | PROGRESS NOTE ---
DATE: 07/14/2016 SUBJECTIVE: The patient is resting comfortably in bed. He has decreasing erythema in his left leg. The redness on his abdomen is resolved. OBJECTIVE: Vital Signs: Temperature 97 degrees, blood pressure 109/53, heart rate 74, respirations 22, O2 saturations 98% on 3 L nasal cannula. General: This is a morbidly obese male, lying in bed, in no acute distress. Head: Normocephalic atraumatic. Heart: S1, S2. Normal. Regular rate and rhythm. Lungs: Clear to auscultation bilaterally. No wheezes, no rales. No rhonchi. Abdomen: Positive bowel sounds. Soft, nontender, nondistended. Extremities: The patient has decreasing erythema involving the left lower extremity, +1 edema. Neurologic: The patient is alert and oriented x3. LABS: White blood cell count 4.9, hemoglobin 11, hematocrit 35, platelets 155, 000. Sodium 135, potassium 4, chloride 91, CO2 29, BUN 22, creatinine 0.8, glucose 93. ASSESSMENT AND PLAN: 1. Abdominal wall cellulitis with left lower extremity cellulitis. Improved. Continue on IV antibiotic therapy as ordered by Dr. Gordon. 2. Volume overload. Improved. 3. Chronic diastolic congestive heart failure exacerbation. Stable. 4. Obstructive sleep apnea. Aware. 5. Severe coronary artery disease status post coronary artery bypass graft. Continue on the current cardiac medications. 6. History of A-flutter. Continue on chronic anticoagulation. 7. Continue with physical therapy. 8. Disposition. Hopefully the patient will be stable for discharge on Saturday. [facility]TDD
[2016-07-14] MEDS: DULCOLAX PR SCH (20:36)
[2016-07-15] MEDS: VANCOMYCIN 1,750 MG in NS 250 ML IV SCH ×2 (00:53→13:58)
[2016-07-15] MEDS: DUONEB (A & A) INH SCH ×4 (03:26→22:47)
[2016-07-15 07:28] LABS: MANUAL DIFF NEEDED? NO
[2016-07-15] MEDS ORDERED: NS 250 ML IV ONE (07:31)
[2016-07-15 07:35] LABS: BASO% 0.8 % (0.0-0.8); EOS# 0.09 X1000 (0.0-0.7); EOS% 1.9 % (0.0-10.0); HEMOGLOBIN 11.2 g/dL (14.0-18.0); LYMPH# 1.52 X1000 (1.2-3.4); LYMPH% 31.7 % (20.5-51.1); MCH 32.4 PG (27-31); MCV 101.2 FL (81-99); MONO# 0.53 X1000 (0.11-0.59); MONO% 11.1 % (1.7-9.3); MPV 10.9 FL (7.4-10.4); NEUT% 54.5 % (42.2-75.2); PLT 154 X1000 (130-400); RBC 3.46 XMIL (4.7-6.1)
[2016-07-15] MEDS ORDERED: NS 250 ML ONE (07:41)
[2016-07-15] MEDS: MAXIPIME 2 GM/NS 100 ML IV SCH ×3 (08:22→23:41)
[2016-07-15] MEDS: ZYRTEC PO SCH (08:25)
[2016-07-15] MEDS: SAVAYSA PO SCH (08:25)
[2016-07-15] MEDS: COLCRYS PO SCH ×2 (08:25→21:16)
[2016-07-15] MEDS: LIPITOR PO SCH (08:25)
[2016-07-15] MEDS: PLAVIX PO SCH (08:26)
[2016-07-15] MEDS: MIRALAX PO SCH ×2 (08:26→21:17)
[2016-07-15] MEDS: ASPIRIN PO SCH (08:27)
[2016-07-15] MEDS: LANOXIN PO SCH (08:27)
[2016-07-15] MEDS: PRINIVIL PO SCH (08:27)
[2016-07-15] MEDS: TOPROL XL PO SCH (08:28)
--- NOTE | 2016-07-15 14:14 | PROGRESS NOTE ---
DATE: 07/15/2016 SUBJECTIVE: The patient has no complaints. However, his blood pressure was noted to be 84/45 this morning. He denies having any shortness of breath or chest pain at this time. OBJECTIVE: Vital Signs: Temperature 97 degrees, blood pressure 90/50, heart rate 83, respirations 18, O2 saturation is 100% on 3 L nasal cannula. General: This is a morbidly obese male, sitting up in bed, in no acute distress. Head: Normocephalic, atraumatic. Heart: S1, S2. Normal. Regular rate and rhythm. Lungs: Clear to auscultation bilaterally. No wheezes. No rales. No rhonchi. Abdomen: Positive bowel sounds. Soft, nontender, nondistended. Extremities: No edema. No cyanosis. No calf tenderness. The left lower extremity has improving erythema. Neurologic: The patient is alert and oriented x3. LABS: White blood cell count 4.7, hemoglobin 11, hematocrit 35, platelets 154. ASSESSMENT AND PLAN: 1. Hypotension. We will hold the patient's antihypertensives today. 2. Abdominal wall cellulitis of the left lower extremity cellulitis. Slowly improving. Continue on IV antibiotic therapy. 3. Volume overload. Improved. Will switch the patient to oral lasix. 4. Chronic diastolic congestive heart failure exacerbation. Stable. 5. Obstructive sleep apnea. Aware. 6. Severe coronary artery disease status post coronary artery bypass graft. Continue on the current cardiac medications. 7. History of atrial flutter. Continue on edoxaban. 8. Status post ICD. Aware. 9. Continue with physical therapy. 10. Disposition. The patient can be discharged home once cleared by Dr. Gordon. [facility]
--- NOTE | 2016-07-15 20:31 | PROGRESS NOTE ---
DATE: 07/15/2016 PRESENT ILLNESS: The patient is being treated by me for cellulitis of the left leg and abdominal wall. I think both the erythema and edema are quite improved. MEDICATIONS: Currently he is on vancomycin and cefepime. He has had them now for a total of 5 days. PHYSICAL EXAMINATION: Vital Signs: Temperature is 97.6 degrees, pulse 93, respirations 20, blood pressure 101/43. Generally: This is an obese, middle-aged male. He is in no acute distress. Lungs: Clear to auscultation. Cardiovascular: Regular heart rate. I thought I heard a systolic murmur. Abdomen: Soft and nontender. Integument: The erythema on the patient 's abdominal wall and left leg has greatly decreased. Also, there is less edema. PERTINENT DATA: There is no new radiographic study. The CBC showed a white count of 4790, hemoglobin 11.2, and platelet count 154,000. Creatinine was 0.8. GFR is greater than 60. ASSESSMENT AND PLAN: 1. As regarding the patient's cellulitis, I think he can be discharged tomorrow on oral antibiotics. I have written a prescription for Augmentin 875 mg and Cipro 500 mg, each being given every 12 hours for 10 more days. I told the patient the more awake he can lose, the better off he will be because it will help control his edema and if he can get rid of some of that edema fluid, he will be much less likely to have cellulitis. The patient also let me know that he today has a prescription for Lasix and potassium to take as he needs it from his primary care physician. The patient will have follow up with his primary care physician. I am available to see the patient on a p.r.n. basis. 2. Comorbidities: He has chronic obstructive pulmonary disease, asthma, congestive heart failure, sleep apnea, leg edema and obesity. [facility]
[2016-07-15] MEDS: DULCOLAX PR SCH (21:17)
[2016-07-16] MEDS: VANCOMYCIN 1,750 MG in NS 250 ML IV SCH ×2 (01:04→14:09)
[2016-07-16] MEDS: DUONEB (A & A) INH SCH ×3 (03:35→11:20)
[2016-07-16 07:41] LABS: HEMATOCRIT 35.4 % (42.0-52.0); HEMOGLOBIN 11.3 g/dL (14.0-18.0); MCH 32.8 PG (27-31); MCHC 31.9 g/dL (33-37); MCV 102.6 FL (81-99); MPV 10.7 FL (7.4-10.4); RBC 3.45 XMIL (4.7-6.1)
[2016-07-16 08:00] LABS: AGAP 11; BUN 17 mg/dL (8-22); CHLORIDE 96 mmol/L (98-107); COSMO 276; POTASSIUM 4.4 mmol/L (3.5-5.1); SODIUM 137 mmol/L (136-145); TCO2 30 mmol/L (25-35)
[2016-07-16] MEDS ORDERED: LASIX PO SCH (09:00)
[2016-07-16] MEDS: LIPITOR PO SCH (09:32)
[2016-07-16] MEDS: SAVAYSA PO SCH (09:32)
[2016-07-16] MEDS: MAXIPIME 2 GM/NS 100 ML IV SCH ×2 (09:33→16:20)
[2016-07-16] MEDS: COLCRYS PO SCH (09:33)
[2016-07-16] MEDS: PRINIVIL PO SCH (09:33)
[2016-07-16] MEDS: TOPROL XL PO SCH (09:33)
[2016-07-16] MEDS: ASPIRIN PO SCH ×2 (09:33→09:34)
[2016-07-16] MEDS: ZYRTEC PO SCH (09:33)
[2016-07-16] MEDS: PLAVIX PO SCH (09:33)
[2016-07-16] MEDS: LANOXIN PO SCH (09:33)
[2016-07-16] MEDS: MIRALAX PO SCH (09:34)
[2016-07-16 13:44] VITALS: BP 94/57
--- NOTE | 2016-07-17 10:14 | DISCHARGE SUMMARY ---
ADMISSION DATE: 07/10/2016 DISCHARGE DATE: 07/16/2016 CONSULTATIONS: 1. Dr. Hudson with cardiology. 2. Dr. Arnoldo Gordon with infectious disease. PERTINENT PROCEDURES: Chest x-ray showed stable cardiomegaly with suggestion of pulmonary venous congestion and perhaps mild interstitial edema with small bilateral pleural effusions. Lower extremity venous Doppler was limited due to patient's morbid obesity but no obvious superficial or deep thrombosis noted. DISCHARGE DIAGNOSES: 1. Abdominal wall cellulitis and left lower extremity cellulitis, slowly improving. The patient to go home on oral antibiotics per infectious disease. 2. Hypotension. Patient's lisinopril was decreased from 20 mg to 10 mg. He was added on digoxin and continued back on his home Lasix. He is now normotensive. 3. Fluid volume overload, improved. Continue oral Lasix. 4. Chronic diastolic congestive heart failure exacerbation, stable. 5. Obstructive sleep apnea. Aware. 6. Severe coronary artery disease, status post coronary artery bypass graft. Continue with current management. 7. Atrial flutter history. Continue on digoxin. 8. Status post implantable cardioverter defibrillator placement. HOSPITAL COURSE: Briefly, Mr. Alamo is a 55-year-old, morbidly obese, male with a history of COPD, CHF, CAD, status post CABG and ICD placement. He presented to the ED with a 2 day history of progressive worsening shortness of breath. The shortness of breath was with mild exertion. He would have to stop and catch his breath. The patient is normally on home O2. However, it did not help with his symptoms. While in the ED, the patient was found to be in pulmonary edema. He was given IV Lasix and admitted to the medical telemetry floor for acute congestive heart failure as well as lower extremity edema. They did do venous Dopplers to rule out any thrombosis. That was negative. Cardiology as well as infectious disease were consulted. Cardiology did place the patient on digoxin and continued him on Lasix. Dr. Gordon agreed with vancomycin and substituted the cefepime for the Zosyn. On 07/15/2016, the patient was hypotensive with blood pressures in the 80s/40s, with some lower 90s/50s. His home Lasix as well as blood pressure medications were held for a day. Today, the patient has been normotensive, anywhere from 94-123. The patient will continue on all medications with the exception of decreasing his lisinopril from 20-10 mg. he will continue on his home O2 at 3 L. VITAL SIGNS: At the time of discharge, temperature is 98.4 degrees, heart rate 95, respirations 20, blood pressure is 105/64, O2 is 98% on 3 L. DISCHARGE DIET: Healthy heart. DISCHARGE MEDICATIONS: 1. Lasix 40 mg p.o. daily as directed. 2. Klor-Con 20 mg p.o. daily as directed. 3. ProAir 8.5 g inhaled daily. 4. Plavix 75 mg p.o. daily. 5. Xyzal 5 mg p.o. daily. 6. Savaysa 60 mg p.o. q.a.m. 7. Lipitor 80 mg p.o. q.a.m. 8. Aspirin 81 mg p.o. q.a.m. 9. Colcrys 0.6 mg p.o. b.i.d. 10. Digoxin 125 mcg p.o. daily. 11. Toprol-XL 25 mg p.o. daily. 12. MiraLAX 17 g p.o. b.i.d. 13. Prinivil 10 mg p.o. daily. Again, this was decreased from 20 due to the patient's hypotensive episode. FOLLOWUP: The patient is being discharged home with his home oxygen at 3 L as well as p.o. antibiotics with Augmentin 875 mg p.o. q.12 hours for 10 days and Cipro 500 mg 1 p.o. q.12 hours for 10 days. He will need to follow up with his primary nurse practitioner, Alma Michaels, in 7 to 10 days as well as follow up with Dr. Hudson in reference to medication changes within the month. Again, digoxin was added and the patient did have some hypotension. After speaking with Dr. Hoffman, his lisinopril was decreased from 20 to 10. The patient has been educated about monitoring his blood pressure as well as his heart rate with parameters to hold medications such as his Toprol, he will hold for a heart rate less than 60 and systolic blood pressure less than 100 until he follows up with Dr. Hudson. He is to continue a healthy heart diet as well as a weight loss diet and exercise lifestyle changes. The patient can return to the ED for any worsening of symptoms. Dictated by DOMINIQUE Murray for Dell Hoffman MD
== END 2016-07-16 16:44 | disposition home or self-care (01) | DRG 292 ==
LOC: ED 23:10 → 3S 07-10 02:38 → 3N 07-11 20:53
PROVIDERS: ATTEND Internal Medicine
PROC: 4B02XTZ Measurement of Cardiac Defibrillator, External Approach (ICD-10-PCS; principal; 2016-07-10)
DX: I11.0 Hypertensive heart disease with heart failure (principal); L03.311 Cellulitis of abdominal wall; I95.9 Hypotension, unspecified; Z99.81 Dependence on supplemental oxygen; Z95.1 Presence of aortocoronary bypass graft; I48.92 Unspecified atrial flutter; L03.116 Cellulitis of left lower limb; J44.1 Chronic obstructive pulmonary disease with (acute) exacerbation; I25.2 Old myocardial infarction; Z68.42 Body mass index [BMI] 45.0-49.9, adult; E66.01 Morbid (severe) obesity due to excess calories; I50.43 Acute on chronic combined systolic (congestive) and diastolic (congestive) heart failure; G47.33 Obstructive sleep apnea (adult) (pediatric); I25.10 Atherosclerotic heart disease of native coronary artery without angina pectoris; J45.909 Unspecified asthma, uncomplicated; E78.5 Hyperlipidemia, unspecified; K21.9 Gastro-esophageal reflux disease without esophagitis; Z95.810 Presence of automatic (implantable) cardiac defibrillator; Z79.899 Other long term (current) drug therapy; Z95.5 Presence of coronary angioplasty implant and graft; Z87.891 Personal history of nicotine dependence; Z82.49 Family history of ischemic heart disease and other diseases of the circulatory system; Z80.9 Family history of malignant neoplasm, unspecified
CPT/HCPCS: 71010; 80048; 80053; 80069; 80202; 82272; 82550; 82784; 82805; 83735; 83880; 84484; 84550; 85025; 85027; 85379; 85651; 86140; 93005; 93010; 93971; 94640; 94761; 96374; J0692; J1160; J1940; J2543; J3370; J7040; J7050

== ENCOUNTER 2019-05-15 21:06 | Inpatient (IN) ==
[2019-05-15] MEDS ORDERED: DUONEB (A & A) INH ONE (22:37)
[2019-05-15 23:06] LABS: BASO# 0.02 X1000 (0.0-0.2); BASO% 0.3 % (0.0-0.8); EOS# 0.05 X1000 (0.0-0.7); EOS% 0.8 % (0.0-10.0); HEMATOCRIT 38.2 % (42.0-52.0); HEMOGLOBIN 12.1 g/dL (14.0-18.0); IMM GRAN# 0.02 X1000 (0.0-0.04); IMM GRAN% 0.3 % (0.0-0.5); LYMPH# 1.03 X1000 (1.2-3.4); LYMPH% 16.6 % (20.5-51.1); MCH 32.4 PG (27-31); MCHC 31.7 g/dL (33-37); MCV 102.1 FL (81-99); MONO# 0.82 X1000 (0.11-0.59); MONO% 13.2 % (1.7-9.3); MPV 10.9 FL (7.4-10.4); NEUT# 4.26 X1000 (1.4-6.5); NEUT% 68.8 % (42.2-75.2); PLT 164 X1000 (130-400); RBC 3.74 XMIL (4.7-6.1); RDW 14.5 % (11.5-14.5)
[2019-05-15 23:18] LABS: ALBUMIN 4.3 g/dL (3.5-5.0); CREATININE 1.3 mg/dL (0.7-1.2); MAGNESIUM 1.8 mg/dL (1.5-2.7); POTASSIUM 4.8 mmol/L (3.5-5.1); TOTAL BILIRUBIN 0.8 mg/dL (0.20-1.00); TOTAL PROTEIN 7.1 g/dL (6.3-8.3)
[2019-05-15 23:35] LABS: INFLUENZA A NEGATIVE (NEGATIVE); INFLUENZA B NEGATIVE (NEGATIVE)
[2019-05-16] MEDS ORDERED: LASIX IV ONE (00:09)
[2019-05-16] MEDS ORDERED: ZOFRAN IV PRN (00:41)
[2019-05-16] MEDS ORDERED: TYLENOL PO PRN (00:41)
--- NOTE | 2019-05-16 00:41 | PROVIDER DOCUMENTATION ---
This chart was entered by Mary Ellen Chavarria Scribe, acting as scribe for Eliu Carvajal CRNP. HPI-General Adult - General Chief Complaint: Shortness of Breath Stated Complaint: HAVING ISSUES BREATHING Time Seen by Provider: 05/15/19 22:01 Source: patient Allergies/Adverse Reactions: Patient Allergies Allergy/AdvReac Type Severity Reaction Status Date / Time aspirin AdvReac Unknown Verified 05/15/19 21:12 Home Medications: Home Medication List Medication Instructions Recorded Confirmed Last Taken Type Albuterol Sulfate [Proair Hfa] 2 puff IH Q4H PRN PRN 03/24/16 04/28/18 07/09/16 08:00 History Clopidogrel Bisulfate [Clopidogrel] 75 mg PO DAILY 03/24/16 04/28/18 04/28/18 09:00 History Levocetirizine Dihydrochloride 5 mg PO DAILY 03/24/16 04/28/18 04/28/18 09:00 History [Xyzal] Digoxin [Lanoxin] 125 microgm PO DAILY #30 tablet 07/16/16 04/28/18 04/28/18 09:00 Rx LISINOpril [Prinivil] 10 mg PO DAILY #30 tablet 07/16/16 04/28/18 04/28/18 09:00 Rx Albuterol [Albuterol Neb] 2.5 mg INH RTQ6H PRN 04/28/18 04/28/18 Unknown History Amitriptyline HCl 25 mg PO HS 04/28/18 04/28/18 04/27/18 21:00 History Apixaban [Eliquis] 5 mg PO BID 04/28/18 04/28/18 04/28/18 09:00 History Atorvastatin Calcium [Lipitor] 80 mg PO DAILY 04/28/18 04/28/18 04/28/18 09:00 History Hydrocodone Bit/Acetaminophen 1 tab PO Q6H PRN 04/28/18 04/29/18 04/08/18 History [Hydrocodon-Acetaminoph 7.5-325] Metoprolol Succinate 100 mg PO DAILY 04/28/18 04/28/18 04/28/18 09:00 History Multivit-Min/FA/Lycopen/Lutein 1 tab PO DAILY 04/28/18 04/28/18 04/28/18 09:00 History [Centrum Silver Men Tablet] Polyethylene Glycol 3350 [Miralax] 17 gm PO DAILY 04/28/18 04/28/18 Unknown History Azithromycin [Zithromax] 250 mg PO DAILY #7 tab 05/01/18 Unknown Rx Furosemide [Lasix] 40 mg PO BID #120 tab 05/01/18 Unknown Rx Prednisone [Deltasone] 20 mg PO DAILY #5 tab 05/01/18 Unknown Rx Amiodarone [Cordarone] 400 mg PO BID #28 tab 05/16/18 Unknown Rx - History of Present Illness -Gen Adult Nature of Presenting Problems: pt is a 58 yr old male presenting with 4 day complaint of chest congestion, cough, shortness of breath and abdominal bloating. pt reports he has been on doxycycline and cipro x 2 days for abdominal cellulitis, pt admits hx of CHF, COPD, denies any fever/chills Location of Pain/Injury: reports: chest, abdomen Severity: reports: moderate Onset/Duration: reports: 4 days ago Timing: reports: still present Context/Activities at Onset: reports: light activity Modifying Factors: improves with: other medication (doxycycline/cipro-no relief) Associated Symptoms: reports: cough, sinus congestion/drainage, swelling/mass in abdomen. denies: EENT symptoms, fever/chills Similar Symptoms Previously?: No Recently seen or treated by another doctor?: No Review of Systems - Adult - REVIEW OF SYSTEMS - ADULT Constitutional: denies: chills, fever Eyes: reports: no symptoms reported Ears, Nose, Mouth & Throat: denies: ear pain, sinus problem, throat pain Cardiovascular: reports: chest pain Respiratory: reports: no symptoms reported Gastrointestinal: reports: no symptoms reported Genitourinary: reports: no symptoms reported Musculoskeletal: reports: no symptoms reported Integumentary: reports: no symptoms reported Neurological: reports: no symptoms reported Psychiatric: reports: no symptoms reported Endocrine: reports: no symptoms reported Hematologic/Lymphatic: reports: no symptoms reported Allergic/Immunologic: reports: no symptoms reported All Other Systems: Reviewed and Negative Past History - Adult - PAST MEDICAL HISTORY-ADULT Review of Records: reports: Old Records Reviewed, Nursing Assessment Review, Medications Reviewed, Social history reviewed & non-contributory. Major Childhood Illnesses: reports: denies history Cardiovascular: reports: CAD, CHF, HTN, hyperlipidemia, pacemaker Respiratory: reports: asthma, COPD Gastrointestinal: reports: denies history Obstetrical/Gynecological: reports: denies history Genitourinary: reports: denies history Musculoskeletal: reports: denies history Neurological: reports: denies history Endocrine/Immune: reports: denies history Other Conditions: reports: denies history - PRIOR SURGERIES/PROCEDURES Surgical/Procedure History: reports: CABG, cardiac stent, pacemaker - IMMUNIZATION STATUS Childhood Immunizations: See Nurse Assessment Flu Vaccine: See Nurse Assessment - FAMILY HISTORY Family History: reviewed, not pertinent - SOCIAL HISTORY Smoking: cigarettes Provider spent 3-5 mins advising pt. on dangers of tobacco.: Discussed manners to quit use, and f/u contacts for add'l counseling. Substance Use: alcohol Alcohol Use Frequency: occasionally Living Situation: family Physical Exam-General - PHYSICAL EXAM-ADULT Initial Vital Signs Reviewed: Yes - CONSTITUTIONAL General Appearance: alert, no apparent distress, obese - EYES Eyes: PERRL/EOMI - HEAD, EARS, NOSE, MOUTH & THROAT HENMT: normocephalic/atraumatic, moist mucous membranes, normal ENT inspection - NECK Neck: non-tender, full range of motion, supple, normal inspection - RESPIRATORY Respiratory: chest non-tender, no respiratory distress, no accessory muscle use, decreased breath sounds (bilaterally), wheezing (mild expiritory wheezes) - CARDIOVASCULAR Cardiovascular: normal peripheral pulses, regular rate, rhythm - GASTROINTESTINAL (ABDOMEN) Abdominal Exam: normal bowel sounds, non tender, soft, other (obese abdomen) - LYMPHATIC Lymphatic: no adenopathy - MUSCULOSKELETAL Back Exam: normal inspection, no CVA tenderness, no vertebral tenderness Extremity: normal range of motion, non-tender, normal gait, pedal edema (bilateral 1+ ptting edema) - SKIN Integumentary: normal color, normal turgor, warm/dry - NEUROLOGIC Neurologic: grossly normal, no motor/sensory deficits - PSYCHIATRIC Psych/Mental Status: normal mood/affect, normal thought content, normal thought process, oriented x 3 Progress - PLAN OF CARE/RESULTS Progress/Plan/Lab Results: Vital Signs - 8 hr 05/15/19 21:09 05/15/19 22:37 05/15/19 22:46 Temperature 97.9 F Pulse Rate 72 78 66 Respiratory Rate 22 20 16 Blood Pressure 98/56 111/70 O2 Sat by Pulse Oximetry 92 L 92 L 92 L Laboratory Results - last 24 hr 05/15/19 21:30 WBC 6.20 RBC 3.74 L Hgb 12.1 L Hct 38.2 L MCV 102.1 H MCH 32.4 H MCHC 31.7 L RDW Std Deviation 14.5 Plt Count 164 MPV 10.9 H Immature Gran % (Auto) 0.3 Neut % (Auto) 68.8 Lymph % (Auto) 16.6 L Green % (Auto) 13.2 H Eos % (Auto) 0.8 Baso % (Auto) 0.3 Immature Gran # (Auto) 0.02 Neut # (Auto) 4.26 Lymph # (Auto) 1.03 L Green # (Auto) 0.82 H Eos # (Auto) 0.05 Baso # (Auto) 0.02 Orders Category Date Time Status Saline Loc NOW Care 05/15/19 22:37 Active CHEST-2 VIEWS [RAD] Stat Exams 05/15/19 22:37 Ordered CBC WITH DIFF [HEME] Stat Lab 05/15/19 21:30 Completed COMPREHENSIVE METABOLIC PANEL [CHEM] Stat Lab 05/15/19 21:[address] Stat Lab 05/15/19 23:00 Received MAGNESIUM [CHEM] Stat Lab 05/15/19 21:30 Received PRO B-NATRIURETIC PEPTIDE Stat Lab 05/15/19 21:30 Received TROPONIN T HIGH SENSITIVITY Stat Lab 05/15/19 21:30 Received Albuterol 2.5MG/Ipratrop 0.5MG [Duoneb (A & A)] Med 05/15/19 22:37 Discontinued 3 ml INH NOW ONE Aerosol Treatments Routine Oth 05/15/19 22:37 Completed Aerosol Treatments Stat Oth 05/15/19 22:37 Completed EKG [EKG] Stat Ther 05/15/19 22:38 Ordered Result Diagrams: 05/15/19 21:30 05/15/19 21:30 - REASSESSMENT Reassessment #1 Time Reassessed: 00:40 Status: improving (SOB improved moderately with breathing tx. Pt in agreement with admit plan.) - XRAY 1 XRAY Study: Chest (Large right pleural effusion. Over read by Dr. Ruiz.) - CONSULTS/PCP/HOSPITALIST Notification #1 *Consult/PCP/Hospitalist*: Dr. Carr Time Discussed: 00:27 Reason/Comments: admission- CHF exacerbation, URI Consult Disposition: Admit (Md requests admit orders including lasix, IV abx, and blood cultures.) Departure - Departure Date of Disposition Decision: 05/16/19 Time of Disposition Decision: 00:40 DIAGNOSIS: Pleural effusion, Hyponatremia CHF exacerbation Qualifiers: Heart failure type: unspecified Qualified Code(s): I50.9 - Heart failure, unspecified Upper respiratory infection Qualifiers: URI type: unspecified URI Qualified Code(s): J06.9 - Acute upper respiratory infection, unspecified Disposition: HOME 01 Certified Medical Emergency: Emergent Condition: Stable Referrals and Follow-Ups: Alma Michaels CRNP [Primary Care Provider] - - Critical Care Note This patient required my direct & personal management of CC.: No Attestation - Physician/ LUIZA Attestation Patient care was provided by Advanced Practice Provider:: Yes Advanced Practice Provider:: Eliu Carvajal Advanced Practice Provider documentation review:: The Mid-level provider documentation, treatment plan and medical decision making was reviewed by the physician who agrees with all treatment and medical decision making by the MLP. The physician spent face to face time with patient:: No Advanced Practice Provider documentation review:: Supervising physician onsite and consulted in the evaluation and care of this patient. The physician did not have a face to face encounter with the patient. This chart was documented by the indicated scribe, (Mary Ellen Chavarria Scribe) and accurately reflects the services I performed and decisions made by , Eliu Carvajal CRNP, as attested by the provider's signature.
[2019-05-16] MEDS ORDERED: ROCEPHIN 1 GM in NS 50 ML IV ONE (00:44)
--- NOTE | 2019-05-16 02:27 | EKG Report ---
Test Performed on : 05/15/2019 11:11:23 PM Test Reason : sob Blood Pressure : / mmHG Vent. Rate : 073 BPM Atrial Rate : 073 BPM P-R Int : 126 ms QRS Dur : 092 ms QT Int : 418 ms P-R-T Axes : 013 -36 112 degrees QTc Int : 460 ms Sinus rhythm. with premature atrial complexes. with aberrant conduction. Left axis deviation Low voltage QRS Nonspecific ST and T wave abnormality Abnormal ECG When compared with ECG of 16-MAY-2018 17:26, Significant changes have occurred Unconfirmed Result
[2019-05-16] MEDS: DUONEB (A & A) INH PRN ×3 (03:01→19:29)
--- NOTE | 2019-05-16 08:51 | Diag Imaging Result Doc PS360 ---
EXAM: CHEST-2 VIEWS INDICATION: cough, SOB TECHNIQUE: 2 views COMPARISON: 05/16/2018 FINDINGS: There is a small right pleural effusion that is similar to the previous study. There is probably mild adjacent atelectasis. No pneumothorax is identified. There is stable cardiomegaly. A pacemaker/defibrillator is in stable position. IMPRESSION: Cardiomegaly and small right effusion that is essentially stable as compared to the previous study. Electronically signed by Noel Rosen 05/16/2019 8:49 AM
[2019-05-16] MEDS ORDERED: LASIX IV SCH (09:00)
[2019-05-16] MEDS ORDERED: NORCO-7.5 PO PRN ×2 (09:34→21:56)
[2019-05-16] MEDS ORDERED: ALBUTEROL NEB INH PRN (09:34)
[2019-05-16] MEDS ORDERED: TOPROL XL PO SCH (09:45)
[2019-05-16] MEDS ORDERED: LANOXIN PO SCH (09:45)
[2019-05-16] MEDS ORDERED: LIPITOR PO SCH (09:45)
[2019-05-16] MEDS: ELIQUIS PO SCH ×2 (11:55→21:06)
[2019-05-16] MEDS: PLAVIX PO SCH (11:55)
[2019-05-16] MEDS: PRINIVIL PO SCH (11:55)
[2019-05-16] MEDS: CORDARONE PO SCH ×2 (11:56→21:11)
[2019-05-16] MEDS ORDERED: ELAVIL PO SCH (21:00)
--- NOTE | 2019-05-16 21:04 | HISTORY AND PHYSICAL ---
CHIEF COMPLAINT: Chest congestion, cough, shortness of breath and abdominal fullness for 4 days. HISTORY OF PRESENT ILLNESS: This is a 58-year-old gentleman with history of systolic heart failure with an ejection fraction of 20 to 25 percent in April 2018, ventricular tachycardia status post AICD implantation, COPD, morbid obesity with sleep apnea syndrome and coronary artery disease status post coronary artery bypass graft. He presents to the emergency room complaining of shortness of breath, increasing chest congestion, cough and abdominal fullness for 4 days. He states he was evaluated by his primary care provider, diagnosed with abdominal cellulitis and given Cipro and doxycycline. He reports that 2 days prior for redness around the umbilical area he was diagnosed with cellulitis, given Cipro and doxycycline and this has since cleared although his respiratory symptoms have not. PAST MEDICAL HISTORY: COPD, systolic heart failure with ejection fraction of 20 to 25 percent in April 2018, coronary artery disease status post coronary bypass graft, atrial fibrillation, obstructive sleep apnea patient uses O2 2 L at night, hypertensive heart disease, hyperlipidemia. PAST SURGICAL HISTORY: Coronary artery bypass graft, herniated disk repair, ICD placement. SOCIAL HISTORY: He smokes about a pack a day. He denies any illicit drug use. ALLERGIES: Aspirin which causes unknown reaction. REVIEW OF SYSTEMS: Discussed with patient with pertinent positives stated in the HPI. He denies any syncope or dizziness, any chest pain or palpitations, a productive cough, any fevers or chills, night sweats, recent weight loss or weight gain, any nausea, vomiting, diarrhea, constipation, black or bloody vomitus or stools, any hematuria, dysuria, frequency, urgency. FAMILY HISTORY: Positive for coronary artery disease, hypertension. HOME MEDICATIONS: A list will be obtained by the nursing staff and once verified review and restart as appropriate. Vital Signs: Blood pressure is 107/60 with a heart rate of 69, respirations are 18, temperature is 97.7 degrees oral with O2 saturations of 99% on 2 L nasal cannula . PHYSICAL EXAM: HEENT: Pupils are equal, round, react to light. EOMs are intact. Sclerae are anicteric. Head is normocephalic, atraumatic. Mucous membranes are moist . Neck is supple with trachea midline. CARDIOVASCULAR: Regular rate and rhythm. S1 and S2 appreciated. He has bilateral lower extremity edema. Calves are nontender bilateral with peripheral pulses palpable x4 extremities . PULMONARY: Breath sounds are diminished throughout. Chest rises and falls symmetric respiration. Chest wall is nontender to palpation. GASTROINTESTINAL: Abdomen soft, nontender, nondistended with bowel sounds in all 4 quadrants. NEUROLOGIC: He is alert and oriented x3. Skin is warm and dry. There is no redness, warmth or drainage noted to his abdomen. LABS: WBC is 6.2 with hemoglobin 12.1, hematocrit 38.2, platelets 164,000. Sodium 129, potassium 4.8, BUN 25, creatinine 1.3 with a glucose of 99. Troponins are 17, 15, 15. ProBNP is 1102 which is actually lower than he has had since 2016. Influenza A and B are negative. Blood cultures are pending. Chest x-ray reveals cardiomegaly and small right effusion that is stable compared to 05/16/2018 chest x-ray. Pacemaker defibrillator is in stable position. ASSESSMENT AND PLAN: 1. Acute systolic heart failure exacerbation overlying chronic disease. He was given intravenous Lasix in the emergency room. We will continue 40 IV b.i.d., will identify his home medications and continue these as appropriate with strict I and O and daily weights. 2. Chronic obstructive pulmonary disease acute exacerbation, duo nebs q.6 hours with q.4 hours p.r.n. and will continue his home prednisone 20 mg daily. 3. Hyponatremia, Mr. Alamo states he has been taking his Lasix 40 mg p.o. b.i.d. along with spironolactone daily and he has taken some extra Lasix, will monitor daily labs. 4. Acute kidney injury. Will hold his lisinopril and check daily labs and reevaluate. 5. History of ventricular tachycardia status post implantable cardioverter defibrillator placement aware. 6. Sleep apnea syndrome with home O2 at 2 L at night. Will continue to give supplemental oxygen. 7. Morbid obesity. 8. Hypertensive heart disease. Will continue home medications as appropriate. 9. Hyperlipidemia. We will continue his home medications. 10. For deep vein thrombosis prophylaxis will continue his Eliquis, for gastrointestinal prophylaxis will add Prilosec. Will start Rocephin for antibiotic coverage. 11. Patient was evaluated. Plan was discussed with Dr. Carr. Further treatments pending hospital course. Dictated by DOMINIQUE Garza for Mendoza Carr MD cc: DOMINIQUE Garza MD
[2019-05-16] MEDS: LASIX IV SCH (21:06)
--- NOTE | 2019-05-16 21:14 | HISTORY AND PHYSICAL ---
ADDENDUM: Patient seen and examined by myself. Full note dictated and discussed with nurse practitioner. Patient presented to the hospital with increased work of breathing, cough, congestion, shortness of breath. Was recently placed on antibiotics for skin infection. Does appears though he has a pleural effusion. We are going to admit him and place him on antibiotics, breathing treatments, oxygen and will follow. cc: Mendoza Carr MD
[2019-05-16] MEDS ORDERED: ZYRTEC PO PRN (21:56)
[2019-05-16] MEDS: ROBITUSSIN-DM PO PRN (23:21)
[2019-05-16] MEDS: ROCEPHIN 1 GM in NS 50 ML IV SCH (23:28)
[2019-05-17] MEDS: DUONEB (A & A) INH PRN ×6 (03:25→23:14)
[2019-05-17] MEDS: ROCEPHIN 1 GM in NS 50 ML IV SCH (04:19)
[2019-05-17] MEDS: ROBITUSSIN-DM PO PRN ×2 (04:27→18:27)
[2019-05-17 06:44] LABS: HEMATOCRIT 36.2 % (42.0-52.0); HEMOGLOBIN 11.5 g/dL (14.0-18.0); MCH 32.2 PG (27-31); MCHC 31.8 g/dL (33-37); MCV 101.4 FL (81-99); MPV 10.6 FL (7.4-10.4); RBC 3.57 XMIL (4.7-6.1); RDW 14.3 % (11.5-14.5); WBC 5.15 X1000 (4.8-10.8)
[2019-05-17 07:14] LABS: AGAP 11; ALBUMIN 3.7 g/dL (3.5-5.0); ALKALINE PHOSPHATASE 84 U/L (32-122); BUN 19 mg/dL (8-22); CALCIUM 8.7 mg/dL (8.8-10.2); CHLORIDE 96 mmol/L (98-107); COSMO 273; CREATININE 0.8 mg/dL (0.7-1.2); ESTIMATED GFR > 60; GLUCOSE 140 mg/dL (70-104); GOT 19 U/L (10-34); GPT 17 U/L (10-44); SODIUM 134 mmol/L (136-145); TCO2 27 mmol/L (25-35); TOTAL PROTEIN 6.7 g/dL (6.3-8.3)
--- NOTE | 2019-05-17 07:34 | Diag Imaging Result Doc PS360 ---
EXAM: CHEST-PORTABLE HISTORY: dyspnea TECHNIQUE: Single view COMPARISON: 05/15/2019 FINDINGS: The heart remains enlarged and there are central vascular distention. There is a small right pleural effusion with basilar atelectasis and possibly and underlying infiltrate. Sternal wires and a left-sided pacemaker. IMPRESSION: No interval improvement Electronically signed by Hadley Nair 05/17/2019 7:32 AM
[2019-05-17] MEDS: LASIX IV SCH ×2 (09:11→20:42)
[2019-05-17] MEDS: MIRALAX PO SCH (09:11)
[2019-05-17] MEDS: ZYRTEC PO SCH (09:12)
[2019-05-17] MEDS: TOPROL XL PO SCH (09:12)
[2019-05-17] MEDS: THERA M PLUS PO SCH (09:12)
[2019-05-17] MEDS: PLAVIX PO SCH (09:12)
[2019-05-17] MEDS: ELIQUIS PO SCH ×2 (09:12→20:41)
[2019-05-17] MEDS: PRINIVIL PO SCH (09:12)
[2019-05-17] MEDS: CORDARONE PO SCH (09:12)
[2019-05-17] MEDS: ALDACTONE PO SCH (09:12)
[2019-05-17] MEDS: PREDNISONE PO SCH (09:12)
--- NOTE | 2019-05-17 16:49 | PROGRESS NOTE ---
DATE: 05/17/2019 SUBJECTIVE: Patient notes that he is feeling mildly better. Still having some swelling in his lower extremities. Lungs appear to be improving. OBJECTIVE: Vital signs: Temperature 97.4, pulse 67, respiratory rate 18, BP 190/95 to 98/58. General: Patient is awake. He is pleasant. He is in minimal distress. He is sitting on the side of bed talking to his daughter. HEENT: Normocephalic. Neck: Supple. Cardiovascular: Regular rate. Chest: Decreased but better air movement. No current crackles. Abdomen: Soft, nondistended. Extremities: Moves all extremities. Neurologic: No changes. ASSESSMENT: 1. Congestive heart failure with an EF of 20 to 25%, systolic with exacerbation. 2. Hyponatremia. 3. Chronic obstructive pulmonary disease with exacerbation. 4. Acute kidney injury. 5. Sleep apnea. 6. Obesity. 7. Hypertension. 8. Hyperlipidemia. PLAN: We are going to continue the patient in the hospital. Continue IV Lasix. We are going to hold his lisinopril given his low blood pressures. If his blood pressure is elevated certainly may consider Xarelto. We will attempt to contact his primary [employer] prior to starting such. cc: Mendoza Carr MD
[2019-05-17] MEDS: LIPITOR PO SCH (20:42)
[2019-05-18] MEDS: ROCEPHIN 1 GM in NS 50 ML IV SCH (00:08)
[2019-05-18] MEDS: DUONEB (A & A) INH PRN ×5 (07:19→22:54)
[2019-05-18] MEDS: TOPROL XL PO SCH (08:54)
[2019-05-18] MEDS: PLAVIX PO SCH (08:54)
[2019-05-18] MEDS: THERA M PLUS PO SCH (08:54)
[2019-05-18] MEDS: CORDARONE PO SCH (08:54)
[2019-05-18] MEDS: LASIX IV SCH ×2 (08:54→21:05)
[2019-05-18] MEDS: PREDNISONE PO SCH (08:54)
[2019-05-18] MEDS: MIRALAX PO SCH (08:54)
[2019-05-18] MEDS: ELIQUIS PO SCH ×2 (08:54→21:05)
[2019-05-18] MEDS: ZYRTEC PO SCH (08:54)
[2019-05-18] MEDS: ALDACTONE PO SCH (08:54)
[2019-05-18] MEDS: ZANAFLEX PO PRN ×2 (11:20→21:17)
[2019-05-18] MEDS: ROBITUSSIN-DM PO PRN ×2 (11:20→21:17)
--- NOTE | 2019-05-18 19:47 | PROGRESS NOTE ---
DATE: 05/18/2019 SUBJECTIVE: Patient notes that he is still having some shortness of breath and coughing, but overall does feel a little bit better. PHYSICAL EXAM: Vital Signs: Temperature 97.4 degrees, pulse 71, respiratory rate 18, blood pressure 100/58. General: Patient is in no current respiratory distress. HEENT: Normocephalic. Neck: Supple. Cardiovascular: Regular rate. Chest: Decreased but equal. Minimal crackles. No current wheezing. Abdomen: Soft and nondistended. Extremities: Moves all extremities. Mild edema. Neurologic: No changes. ASSESSMENT: 1. Acute systolic congestive heart failure. 2. Chronic obstructive pulmonary disease with mild exacerbation. 3. Hyponatremia. 4. Acute on chronic kidney injury, improved. 5. Hypotension, improving. PLAN: We are going to continue patient in the hospital. Continue Lasix today. We will continue to hold his ESTELA inhibitor and hopefully restart on Entresto tomorrow. Expect in the hospital one or two more days. cc: Mendoza Carr MD
[2019-05-18] MEDS: LIPITOR PO SCH (21:05)
[2019-05-19] MEDS: ROCEPHIN 1 GM in NS 50 ML IV SCH (00:11)
[2019-05-19] MEDS: DUONEB (A & A) INH PRN ×5 (03:12→22:41)
[2019-05-19 08:16] LABS: HEMATOCRIT 38.4 % (42.0-52.0); HEMOGLOBIN 11.8 g/dL (14.0-18.0); MCH 31.9 PG (27-31); MCHC 30.7 g/dL (33-37); MCV 103.8 FL (81-99); MPV 10.6 FL (7.4-10.4); RBC 3.7 XMIL (4.7-6.1); RDW 14.2 % (11.5-14.5); WBC 6.83 X1000 (4.8-10.8)
[2019-05-19 08:27] LABS: AGAP 10; ALBUMIN 3.8 g/dL (3.5-5.0); ALKALINE PHOSPHATASE 87 U/L (32-122); BUN 20 mg/dL (8-22); CALCIUM 9.4 mg/dL (8.8-10.2); CHLORIDE 97 mmol/L (98-107); COSMO 281; CREATININE 0.9 mg/dL (0.7-1.2); ESTIMATED GFR > 60; GLUCOSE 114 mg/dL (70-104); GOT 17 U/L (10-34); GPT 19 U/L (10-44); MAGNESIUM 1.8 mg/dL (1.5-2.7); SODIUM 139 mmol/L (136-145); TCO2 32 mmol/L (25-35)
[2019-05-19] MEDS: ELIQUIS PO SCH ×2 (09:29→20:45)
[2019-05-19] MEDS: ZYRTEC PO SCH (09:30)
[2019-05-19] MEDS: PREDNISONE PO SCH (09:30)
[2019-05-19] MEDS: TOPROL XL PO SCH (09:30)
[2019-05-19] MEDS: LASIX PO SCH ×2 (09:30→20:45)
[2019-05-19] MEDS: ENTRESTO 24 MG-26 MG TABLET PO SCH ×2 (09:30→20:45)
[2019-05-19] MEDS: THERA M PLUS PO SCH (09:30)
[2019-05-19] MEDS: ALDACTONE PO SCH (09:30)
[2019-05-19] MEDS: MIRALAX PO SCH (09:30)
[2019-05-19] MEDS: CORDARONE PO SCH (09:31)
[2019-05-19] MEDS: PLAVIX PO SCH (09:31)
[2019-05-19] MEDS: ZANAFLEX PO PRN (14:13)
[2019-05-19] MEDS: ROBITUSSIN-DM PO PRN (14:13)
--- NOTE | 2019-05-19 19:13 | PROGRESS NOTE ---
DATE: 05/19/2019 SUBJECTIVE: Patient notes overall he is feeling a little bit better. Denies any fevers or chills. Denies chest pains. States that his swelling in his lower extremities also appears to be improved. PHYSICAL EXAMINATION: Vital signs: Temperature 98 degrees, pulse 67, respiratory rate 18, BP 105/48 to 106/59. General: Patient is pleasant. He is alert and oriented. HEENT: Normocephalic. Neck: Supple. Cardiovascular: Regular rate. Chest: Clear. No crackles. No wheezing. Abdomen: Soft, obese, nondistended. Extremities: Trace edema in bilateral lower extremities. Moves all extremities well. Neurologic: No focal changes. Skin: Warm and dry. No rashes. ASSESSMENT: 1. Congestive heart failure with ejection fraction of 20 to 25 percent. We are going to add low dose Entresto twice daily and will follow. We will change him from intravenous Lasix to oral. If he tolerates this and tolerates the Entresto, hopefully, he can discharge home tomorrow. 2. Chronic obstructive pulmonary disease with exacerbation. 3. Hyponatremia. 4. Acute kidney injury. Creatinine was 1.3 on admit, currently 0.9. PLAN: As noted above, hopefully patient can discharge home over the next day or two. cc: Mendoza Carr MD
[2019-05-19] MEDS: LIPITOR PO SCH (20:45)
[2019-05-20] MEDS: ROCEPHIN 1 GM in NS 50 ML IV SCH (00:11)
[2019-05-20] MEDS: DUONEB (A & A) INH PRN ×3 (03:03→11:00)
[2019-05-20] MEDS: ZANAFLEX PO PRN (03:59)
[2019-05-20] MEDS: ROBITUSSIN-DM PO PRN (03:59)
[2019-05-20 05:53] VITALS: BP 97/52
[2019-05-20] MEDS: PREDNISONE PO SCH (09:12)
[2019-05-20] MEDS: LASIX PO SCH (09:12)
[2019-05-20] MEDS: PLAVIX PO SCH (09:12)
[2019-05-20] MEDS: ELIQUIS PO SCH (09:12)
[2019-05-20] MEDS: THERA M PLUS PO SCH (09:12)
[2019-05-20] MEDS: ENTRESTO 24 MG-26 MG TABLET PO SCH (09:12)
[2019-05-20] MEDS: MIRALAX PO SCH (09:12)
[2019-05-20] MEDS: ZYRTEC PO SCH (09:12)
[2019-05-20] MEDS: TOPROL XL PO SCH (09:12)
[2019-05-20] MEDS: ALDACTONE PO SCH (09:12)
[2019-05-20] MEDS: CORDARONE PO SCH (09:12)
--- NOTE | 2019-05-21 09:25 | DISCHARGE SUMMARY ---
ADMISSION DATE: 05/16/2019 DISCHARGE DATE: 05/20/2019 The patient is seen and examined by myself. Full note dictated and discussed with nurse practitioner. Will discharge the patient today [*]. He is feeling better. He is tolerating [*]. Will continue this at home. Will continue to watch his salt, check his weight daily, and will follow. cc: Mendoza Carr MD
--- NOTE | 2019-05-21 11:36 | DISCHARGE SUMMARY ---
ADMISSION DATE: 05/16/2019 DISCHARGE DATE: 05/20/2019 ADMISSION DIAGNOSES: 1. Acute on chronic systolic congestive heart failure. 2. Chronic obstructive pulmonary disease exacerbation. 3. Hyponatremia. 4. Acute kidney injury. 5. History of ventricular tachycardia with defibrillator. 6. Obstructive sleep apnea with home oxygen. 7. Morbid obesity. 8. Hypertensive heart disease with heart failure. 9. Hyperlipidemia. DISCHARGE DIAGNOSES: 1. Acute on chronic systolic congestive heart failure, now stable. 2. Chronic obstructive pulmonary disease exacerbation, resolved. 3. Hyponatremia, improved. 4. Acute kidney injury, resolved. CONSULTATIONS: None. SURGERIES AND PROCEDURES: None. HOSPITAL COURSE: On 05/15/2019, Bella Alamo, a 58-year-old male, presented with complaints of chest congestion, cough, shortness of breath, abdominal fullness for at least 4 days. He had an ejection fraction of 20% to 25% in 04/2018, ventricular tachycardia with an AICD. He also has COPD. Workup reveals COPD exacerbation. He also had acute on chronic systolic congestive heart failure. He was initiated on IV Lasix, given nebulizer, steroids. Kidney function improved after his lisinopril was held while he was here. Low-dose Entresto was added, and IV Lasix was changed to oral Lasix. DISCHARGE VITAL SIGNS: Temperature 97.8 degrees, heart rate 66, respiratory rate 20, blood pressure 97/52, O2 saturation 98% on 2 L nasal cannula. DISCHARGE LABORATORY DATA: White blood cells 6000, hemoglobin 11, hematocrit 38, platelet count 147,000. Sodium 139, potassium 5.0, BUN 20, creatinine 0.9, glucose 114, calcium 9.4. Magnesium 1.8. Bilirubin 0.80, AST 17, ALT 19, albumin 3.8. He was flu negative. MICROBIOLOGY: Blood cultures negative. PERTINENT IMAGING: He had a chest x-ray on that showed cardiomegaly and small right effusion, that was stable. He had a repeat chest x-ray on 05/17/2019 with no interval improvement. He had an EKG on 05/15/2019 that showed sinus rhythm with PACs, rate 73. DISCHARGE MEDICATIONS: 1. Lasix 40 mg p.o. twice a day. 2. Albuterol nebulizers. 3. Aldactone 25 mg p.o. daily. 4. Amiodarone 200 mg p.o. daily. 5. Multivitamin once daily. 6. Ciprofloxacin 500 mg p.o. twice a day for 10 days. 7. Plavix 75 mg p.o. daily. 8. Doxycycline 100 mg p.o. twice daily for 10 days. 9. Eliquis 5 mg p.o. twice daily. 10. Lipitor 80 mg p.o. daily. 11. MiraLAX 17 grams p.o. daily. 12. Popejoy 1 tablet p.o. twice daily p.r.n. 13. Tizanidine 4 mg p.o. t.i.d. p.r.n. 14. Levocetirizine 5 mg p.o. daily. 15. Entresto one tablet p.o. twice daily. DISCHARGE DIET: Heart healthy. DISCHARGE ACTIVITY: As tolerated. PHYSICIAN FOLLOWUPS: Alma Michaels. DISCHARGE INSTRUCTIONS: If her condition changes, contact physician and/or return to the emergency department. Changes may include, but are not limited to, shortness of breath, increased fatigue, excessive bleeding, unexplained weight loss or gain, unmanageable pain, signs or symptoms of infection. DISCHARGE DISPOSITION: Home. Dictated by DOMINIQUE Stallworth for Mendoza Carr MD cc: DOMINIQUE Stallworth MD
== END 2019-05-20 11:57 | disposition home or self-care (01) | DRG 292 ==
LOC: P.ED 21:06 → P.MEDSURG 05-16 09:52
PROVIDERS: ATTEND Family Medicine